=== PATIENT | male | born 1995 | race Caucasian/White ===

== ENCOUNTER 2016-12-04 08:57 | Inpatient (IN) | payer OTHER ==
[~2016-12-04] VITALS: Ht 169.5 cm; Wt 93.3 kg
[~2016-12-04 08:57] MED LIST: BP MEDS; INSULIN; [UNRECOGNIZED DRUG - REMARK]
[2016-12-04] MEDS ORDERED: ACETAMINOPHEN 325 MG TAB PO ONE (10:30)
--- NOTE | 2016-12-04 10:40 | RADRPT ---
PROCEDURE: Chest x-ray CLINICAL INDICATION: Chest pain. TECHNIQUE: One-view frontal. COMPARISON: None available FINDINGS: The cardiac silhouette is normal. No infiltrates are noted. No hilar abnormalities are identified. No pneumothorax or pleural effusions are visualized. IMPRESSION: 1. No active cardiopulmonary changes. RPTAT: HH .Otto Mata MD, MD Date Time Electronically viewed and signed by .Otto Mata MD, on 12/04/2016 10:40 .G/
[2016-12-04] MEDS ORDERED: ALBU18HF INHALATION (11:13)
[2016-12-04] MEDS ORDERED: IBUP-1542 PO (11:13)
[2016-12-04] MEDS ORDERED: SOD CHLORIDE 0.9% 1,000 ML IV STA ×2 (11:46→13:51)
[2016-12-04] MEDS ORDERED: ONDANSETRON 4 MG INJ IV STA (11:46)
[2016-12-04] MEDS ORDERED: INSULIN REGULAR, HUMAN 100 UNIT/1 ML 3ML VIAL SC ONE (12:30)
[2016-12-04 13:05] LABS: ADD UMIC YES; URINE BILIRUBIN (Dip) NEGATIVE (NEGATIVE); URINE BLOOD (Dip) 1+ (NEGATIVE); URINE COLOR LT. YELLOW (YELLOW); URINE KETONES (Dip) 3+ (NEGATIVE); URINE LEUKOCYTE ESTERASE (Dip) NEGATIVE (NEGATIVE); URINE NITRITE (Dip) NEGATIVE (NEGATIVE); URINE TOTAL PROTEIN (Dip) 1+ (NEGATIVE); URINE UROBILINOGEN (Dip) 0.2 E.U./dL (0.1-1.0)
[2016-12-04 13:07] LABS: EOSINOPHILS % 0.1 % (0.0-7.0); HEMATOCRIT 43.5 % (42.0-52.0); LYMPHOCYTES # 2.4 10^3/ul (0.8-2.9); LYMPHOCYTES % 7.1 % (18.0-55.0); MEAN CORPUSCULAR HEMOGLOBIN 30.4 pg (29.0-33.0); MEAN CORPUSCULAR HGB CONC 35.1 g/dl (32.0-37.0); MEAN CORPUSCULAR VOLUME 86.4 fl (72.0-104.0); MEAN PLATELET VOLUME 12.6 fl (7.4-10.4); MONOCYTE # 2.6 10^3/ul (0.3-0.9); MONOCYTES % 7.9 % (0.0-13.0); NEUTROPHIL # 28.5 10^3/ul (1.6-7.5); NEUTROPHILS % 84.9 % (30.0-74.0); RED BLOOD COUNT 5.03 10^6/ul (4.70-6.10); RED CELL DISTRIBUTION WIDTH 12.8 % (11.5-14.5); UNCORRECTED WBC 33.6 10^3/ul (4.8-10.8)
[2016-12-04 13:10] LABS: CONDITION 1; LH ANALYZER COMMENTS 1; PLATELET COUNT 317 10^3/UL (140-440); SUSPECT 1; WHITE BLOOD COUNT 32.8 10^3/ul (4.8-10.8)
[2016-12-04 13:11] LABS: HEMOGLOBIN 15.3 g/dl (14.0-18.0)
[2016-12-04 13:30] LABS: URINE RBCS 0-2 /HPF (0)
[2016-12-04 13:31] LABS: BACTERIA,URINE OCCASIONAL
[2016-12-04 13:36] LABS: ALBUMIN/GLOBULIN RATIO 0.73; POTASSIUM 5.2 mmol/L (3.5-5.1)
[2016-12-04 13:39] LABS: ALBUMIN 3.9 g/dl (3.3-4.9); BILIRUBIN,INDIRECT 0.2 mg/dl (0-1.1); BILIRUBIN,TOTAL 0.2 mg/dl (0.2-1.3); CALCIUM 9.5 mg/dl (8.4-10.2); CREATININE 0.69 mg/dl (0.61-1.24); TOTAL PROTEIN 9.2 g/dl (6.1-8.1)
[2016-12-04] MEDS ORDERED: SODIUM CHLORIDE 0.9% 1L BAG IV* STA (13:41)
[2016-12-04] MEDS ORDERED: INSULIN REGULAR, HUMAN 100 UNIT in SOD CHLORIDE 0.9% 99 ML IV STA ×2 (13:51)
[2016-12-04] MEDS ORDERED: DEXTROSE 50% 50 ML SYRINGE IV PRN ×4 (14:00→14:30)
[2016-12-04 14:08] LABS: INR 0.96; PROTIME 12.8 Sec (12.2-14.2)
[2016-12-04 14:09] LABS: PARTIAL THROMBOPLASTIN TIME 25.8 Sec (25.0-35.0)
[2016-12-04] MEDS: ACCUCHECK XX SCH ×17 (14:21→23:30)
[2016-12-04] MEDS ORDERED: SOD CHLORIDE 0.9% 1,000 ML IV SCH (14:25)
--- NOTE | 2016-12-04 14:26 | ERA ---
ER Documentation Chief Complaint Date/Time DATE: 12/04/16 TIME: 13:21 Chief Complaint CHEST PAIN AND SOB FOR 3 DAYS GETTING WORSE TODAY. HPI 21-year-old male with history of hypertension and type 1 diabetes mellitus, insulin-dependent ambulatory to the ED complaining of generalized malaise and body aches for 3 days. Symptoms began with sharp, nonradiating, lower and generalized chest pain which is waxed and waned. Mild shortness of breath and nausea but no vomiting or diaphoresis. Denies abdominal pain or back pain. No URI symptoms, cough, sore throat or rhinorrhea. Denies dysuria, polyuria, hematuria or flank pain. Generalized weakness but no headache, visual changes, neck or back pain. No skin rash. No relieving or exacerbating factors. No fevers or chills. ROS All systems reviewed and are negative except as per history of present illness. Medications Home Meds Reported Medications Lisinopril* (Lisinopril*) 30 Mg Tablet, 30 MG PO DAILY, #30 TAB 12/04/16 Insulin Aspart* (Novolog Insulin Pen*) 100 Unit/Ml Soln, 0 SC .SLIDING SCALE AC , EA BEFORE MEALS THREE TIMES DAILY 12/04/16 Discontinued Reported Medications [Doesnt Remeber Name] No Conflict Check 05/13/12 [Insulin] No Conflict Check 05/13/12 [Bp Meds] No Conflict Check 05/13/12 [None] No Conflict Check 05/03/12 Discontinued Scripts Albuterol Sulfate* (Ventolin HFA*) 18 Gm Hfa.aer.ad, 2 PUFF INHALATION Q4H, #1 INHALER Prov:ONDINA SOTO MD 12/04/16 Ibuprofen* (Motrin*) 600 Mg Tab, 600 MG PO Q6, #18 TAB Prov:ONDINA SOTO MD 12/04/16 Allergies Allergies: Coded Allergies: No Known Allergies (Verified Allergy, Unknown, 12/04/16) PMhx/Soc Reviewed in chart. As per HPI. Medical and Surgical Hx: pt denies Surgical Hx History of Surgery: No Anesthesia Reaction: No Hx Neurological Disorder: Yes Hx Respiratory Disorders: No Hx Cardiac Disorders: Yes (HTN) Hx Psychiatric Problems: No Hx Miscellaneous Medical Probl: Yes (DM) Hx Alcohol Use: No Hx Substance Use: No Hx Tobacco Use: No Smoking Status: Never smoker FmHx Diabetes and hypertension but no coronary artery disease, stroke or cancer Physical Exam Vitals Vital Signs Date Time Temp Pulse Resp B/P Pulse Ox O2 Delivery O2 Flow Rate FiO2 12/04/16 16:15 114 18 155/79 99 Room Air 12/04/16 15:20 114 160/65 12/04/16 11:48 100.0 120 16 147/78 97 Room Air 12/04/16 08:59 100.2 120 21 177/74 98 Physical Exam Const: Alert, ill-appearing in mild distress. Head: Atraumatic Eyes: Normal Conjunctiva ENT: Normal External Ears, Nose and Mouth. Neck: Full range of motion. No meningismus. Resp: Clear to auscultation bilaterally Cardio: Tachycardic. Regular rate and rhythm, no murmurs Abd: Soft, non tender, non distended. Normal bowel sounds. Obese Skin: No petechiae or rashes Back: No midline or flank tenderness Ext: No cyanosis, or edema Neur: Awake and alert. No focal deficit observed. Psych: Normal Mood and Affect Result Diagram: 12/04/16 1200 12/04/16 1445 Results 24 hrs Laboratory Tests Test 12/04/16 12:00 12/04/16 12:01 12/04/16 12:40 12/04/16 13:47 Alanine Aminotransferase (ALT/SGPT) 37IU/L Albumin 3.9g/dl Albumin/Globulin Ratio 0.73 Alkaline Phosphatase 124IU/L Anion Gap 36 Aspartate Amino Transf (AST/SGOT) 14IU/L Basophils # 0.010^3/ul Basophils % 0.0% Blood Morphology Comment Blood Urea Nitrogen 8mg/dl Calcium Level 9.5mg/dl Carbon Dioxide Level 6mmol/L Chloride Level 99mmol/L Creatinine 0.69mg/dl Direct Bilirubin 0.00mg/dl Eosinophils # 0.010^3/ul Eosinophils % 0.1% Globulin 5.30g/dl Glucose Level 391mg/dl Hematocrit 43.5% Hemoglobin 15.3g/dl Indirect Bilirubin 0.2mg/dl Lipase 116U/L Lymphocytes # 2.410^3/ul Lymphocytes % 7.1% Mean Corpuscular Hemoglobin 30.4pg Mean Corpuscular Hemoglobin Concent 35.1g/dl Mean Corpuscular Volume 86.4fl Mean Platelet Volume 12.6fl Monocytes # 2.610^3/ul Monocytes % 7.9% Neutrophils # 28.510^3/ul Neutrophils % 84.9% Nucleated Red Blood Cells # 0.010^3/ul Nucleated Red Blood Cells % 0.0/100WBC Platelet Count 21178^3/UL Potassium Level 5.2mmol/L Red Blood Count 5.0310^6/ul Red Cell Distribution Width 12.8% Sodium Level 136mmol/L Total Bilirubin 0.2mg/dl Total Protein 9.2g/dl White Blood Count 32.810^3/ul Bedside Glucose 422mg/dL Urine Amphetamines Screen NEGATIVE Urine Bacteria OCCASIONAL Urine Barbiturates NEGATIVE Urine Benzodiazepines Screen NEGATIVE Urine Bilirubin NEGATIVE Urine Cannabinoids NEGATIVE Urine Clarity CLEAR Urine Coarse Granular Casts OCCASIONAL Urine Cocaine Screen NEGATIVE Urine Color LT. YELLOW Urine Fine Granular Casts OCCASIONAL Urine Glucose 0.5%% Urine Granular Casts OCCASIONAL Urine Hemoglobin 1+ Urine Ketones 3+ Urine Leukocyte Esterase NEGATIVE Urine Microscopic RBC 0-2/HPF Urine Microscopic WBC 5-10/HPF Urine Nitrite NEGATIVE Urine Opiates Screen NEGATIVE Urine Specific [place] >=1.030 Urine Total Protein 1+ Urine Urobilinogen 0.2 E.U./dL Urine Yeast OCCASIONAL Urine pH 5.5 Aldair Test N/A Arterial Blood Date Drawn 12/04/2016 2:35:20 PM Arterial Blood Gas Puncture Site VENOUS LINE Blood Gas Critical Value Read Back DR. KHALIL Blood Gas Modality ROOM AIR Blood Gas Notified Time 12/04/2016 2:42:00 PM Blood Gas Notified Whom BRITTANI Blood Gas Specimen Source Blood venous Blood Gas Temperature 37.0C Carboxyhemoglobin 0.3% FiO2 21.0% Venous Blood Base Excess -20.7mmol/L Venous Blood HCO3 6.7mmol/L Venous Blood Methemoglobin 0.3% Venous Blood Oxygen Saturation 65.8mmHG Venous Blood Oxyhemoglobin 65.4% Venous Blood Total Hemoglobin 11.9g/dl Venous Blood pCO2 (Temp Corrected) 20.8mmHG Venous Blood pH 7.126 Venous Blood pO2 (Temp Corrected) 38.2mmHG Test 12/04/16 13:50 12/04/16 14:20 12/04/16 14:45 12/04/16 15:23 Activated Partial Thromboplast Time 25.8Sec Hemoglobin A1c 12.7% INR International Normalized Ratio 0.96 Lactic Acid Level 1.3mmol/L Magnesium Level 1.9mg/dl Phosphorus Level 4.4mg/dl Prothrombin Time 12.8Sec Prothrombin Time Ratio 1.0 Troponin I < 0.012ng/ml Bedside Glucose 329mg/dL 286mg/dL Anion Gap 22 Blood Urea Nitrogen 6mg/dl Calcium Level 6.1mg/dl Carbon Dioxide Level 6mmol/L Chloride Level 114mmol/L Creatinine 0.42mg/dl Glucose Level 239mg/dl Potassium Level 3.8mmol/L Sodium Level 138mmol/L Test 12/04/16 16:20 Bedside Glucose 267mg/dL Current Medications Medications (Trade) Dose Ordered Sig/Cj Route PRN Reason Start Time Stop Time Status Last Admin Dose Admin Acetaminophen 650 mg 650 mg ONCE ONCE PO 12/04/16 10:30 12/04/16 10:31 DC 12/04/16 10:27 Sodium Chloride (NS) 1,000 ml @ 1,000 mls/hr Q1H STAT IV 12/04/16 11:46 12/04/16 12:45 DC 12/04/16 12:14 Ondansetron HCl (Zofran Inj) 4 mg ONCE STAT IV 12/04/16 11:46 12/04/16 11:47 DC 12/04/16 12:14 Insulin Human Regular (Humulin R) 8 unit ONCE ONCE SC 12/04/16 12:30 12/04/16 12:31 DC 12/04/16 12:27 Sodium Chloride 3100 ml 3,100 ml BOLUS OVER 2 HOURS STAT IV* 12/04/16 13:41 12/04/16 13:43 DC 12/04/16 13:52 Sodium Chloride (NS) 1,000 ml @ 1,000 mls/hr Q1H STAT IV 12/04/16 13:51 12/04/16 14:50 DC 12/04/16 14:23 Dextrose (D50w Syringe) 50 ml Q15M PRN IV For BS 50 or less 12/04/16 14:00 Dextrose 25 ml 25 ml Q15M PRN IV BS between 50-70 12/04/16 14:00 Potassium Chloride 20 meq/ Sodium Chloride 1,010 ml @ 500 mls/hr Q2H2M IV 12/04/16 15:51 12/04/16 17:50 12/04/16 16:11 Insulin Human Regular/Sodium Chloride (Humulin R/NS) 100 ml @ 0 mls/hr DKA PROTOCOL STAT IV 12/04/16 13:51 12/04/16 13:55 DC 12/04/16 14:38 Diagnostic Test (Pha) (Accucheck) 1 ea Q1H XX 12/04/16 14:00 12/04/16 16:17 Miscellaneous Information (* Miscellaneous Pharmacy Order) HYPOGLYCEMIA TREATMENT HYPOGLYCEM PROTOCOL PRN XX Hypoglycemia (BS < 70) 12/04/16 14:00 Dextrose (D50w Syringe) 50 ml Q15M PRN IV For BS 50 or less 12/04/16 14:30 Dextrose 25 ml 25 ml Q15M PRN IV BS between 50-70 12/04/16 14:30 Sodium Chloride 1,000 ml @ 1,000 mls/hr Q1H IV 12/04/16 14:25 12/04/16 15:24 DC 12/04/16 14:40 Insulin Human Regular/Sodium Chloride (Humulin R/NS) 100 ml @ 10 mls/hr DKA PROTOCOL IV 12/04/16 14:30 12/04/16 14:30 Diagnostic Test (Pha) (Accucheck) 1 ea Q1H XX 12/04/16 14:30 12/04/16 16:36 Miscellaneous Information HYPOGLYCEMIA TREATMENT HYPOGLYCEM PROTOCOL PRN XX Hypoglycemia (BS < 70) 12/04/16 14:30 Sodium Chloride 1,000 ml @ 150 mls/hr Q6H40M IV 12/04/16 14:25 12/04/16 15:34 Dextrose/Sodium Chloride (D5-1/2ns) 1,000 ml @ 150 mls/hr Q6H40M IV 12/04/16 14:25 12/04/16 14:39 Famotidine (Pepcid Iv) 20 mg BID IV 12/04/16 21:00 Ondansetron HCl (Zofran Inj) 4 mg Q6H PRN IV NAUSEA AND/OR VOMITING 12/04/16 14:30 Docusate Sodium 200 mg 200 mg BID PO 12/04/16 21:00 Piperacillin Sod/ Tazobactam Sod (Zosyn 3.375gm/ 100 ml (Pmx)) 100 ml @ 200 mls/hr ONCE ONCE IVPB 12/04/16 15:00 12/04/16 15:29 DC 12/04/16 15:08 Losartan Potassium 25 mg 25 mg DAILY PO 12/04/16 15:00 12/04/16 15:41 Ceftriaxone Sodium 50 ml @ 100 mls/hr Q24H IVPB 12/04/16 15:00 12/04/16 15:35 Fluconazole (Diflucan 200 Mg/ NS (Pmx)) 100 ml @ 100 mls/hr Q24H IVPB 12/04/16 16:00 12/04/16 16:11 Procedures/MDM DOCUMENTS REVIEWED: ED nurse, prior ED, prior records MEDICAL DECISION MAKIN-year-old male with history of hypertension and type 1 diabetes mellitus, insulin-dependent ambulatory to the ED complaining of generalized malaise and body aches for 3 days. Chest pain of uncertain etiology. No ischemic EKG changes or elevated troponin. No radiographic evidence of pneumonia or pneumothorax. Patient with multiple criteria for systemic inflammatory response syndrome including tachycardia, tachypnea and leukocytosis. No infectious source identified. Lactate is normal. Severe hyperglycemia and anion gap metabolic acidosis consistent with diabetic ketoacidosis. IV hydration and insulin drip are initiated. Patient be admitted to the intensive care unit for further evaluation and management. Counseled patient regarding diagnosis, diagnostic results and plan for admission. CALLS/CONSULTS: Time 13:50, Dr. Palacio, Recommends admission to the ICU. PATIENT CARE TRANSITIONED: Time: 14:00, Dr. Palacio. Critical Care Time: 35 minutes Treatments/Evaluations: Due to the high probability of sudden, clinically significant cardiovascular, hemodynamic and endocrinologic deterioration, this patient with systemic inflammatory response syndrome, chest pain, severe hyperglycemia and diabetic ketoacidosis required frequent and multiple re- evaluations of vital signs and response to therapy including insulin drip. Additional critical care time was spent in interpretation of relevant clinical data, review of previous medical records and discussion with the admitting physician. Total critical care time not including other separately reportable procedures is 35 minutes. Departure Diagnosis: Primary Impression: Diabetic ketoacidosis associated with type 1 diabetes mellitus Qualified Code: E10.10 - Diabetic ketoacidosis without coma associated with type 1 diabetes mellitus Additional Impressions: Hyperglycemia Systemic inflammatory response syndrome Leukocytosis Qualified Code: D72.829 - Leukocytosis, unspecified type Condition: SANDRA Sanabria MD Dec 04, 2016 14:26
[2016-12-04 14:29] LABS: PHOSPHORUS 4.4 mg/dl (2.5-4.9)
[2016-12-04 14:30] LABS: MAGNESIUM 1.9 mg/dl (1.7-2.5)
[2016-12-04] MEDS ORDERED: ONDANSETRON 4 MG INJ IV PRN (14:30)
[2016-12-04] MEDS: INSULIN REGULAR, HUMAN 100 UNIT in SOD CHLORIDE 0.9% 99 ML IV SCH ×6 (14:30→16:35)
[2016-12-04] MEDS: DEXTROSE 5%-0.45% NACL 1,000 ML IV SCH ×2 (14:39→19:13)
[2016-12-04 14:42] LABS: MODE ROOM AIR; MetHgb Venous 0.3 %; Sample Type Blood venous; Venous COHb 0.3 %; Venous Fraction OxyHgb 65.4 %; Venous Total Hemglobin 11.9 g/dl
--- NOTE | 2016-12-04 14:44 | HP ---
Date/Time of Note Date/Time of Note DATE: 12/04/16 TIME: 14:39 Assessment/Plan VTE Prophylaxis VTE Prophylaxis Intervention: SCD's Assessment/Plan Assessment/Plan 21 yo M with DKA UTI (Yeast + bacterial) Sepsis 2/2 #2 HTN: uncontrolled PLAN: ICU admit for DKA via protocol / NPO / Insulin drip / Aggressive IVF hydration Empiric antifungal and abx Blood and urine cultures Serial labs Commence ARB therapy for HTN and proteinuria Prophylaxis with SCDs and Pepcid pain control/ antiemetics/ antipyretics/ supportive care Further evaluation and treatment will be based on clinical course Full discussion with care team done. All questions Answered Please also see orders. Total time spent on this evaluation >35mins HPI/ROS Admit Date/Time Admit Date/Time 12/04/16 Hx of Present Illness PRESENTING COMPLAINT: body aches HISTORY OF PRESENTING COMPLAINT: 21-year-old male with history of hypertension and type 1 diabetes mellitus, insulin-dependent ambulatory to the ED complaining of generalized malaise and body aches for 3 days. Symptoms began with sharp, nonradiating, lower and generalized chest pain which is waxed and waned. Mild shortness of breath and nausea but no vomiting or diaphoresis. Denies abdominal pain or back pain. No URI symptoms, cough, sore throat or rhinorrhea. Denies dysuria, polyuria, hematuria or flank pain. Generalized weakness but no headache, visual changes, neck or back pain. No skin rash. No relieving or exacerbating factors. No fevers or chills. ROS 12 point review if systems was done and pertinent findings are as noted. PMH/Family/Social Past Medical History Medical History: diabetes, hypertension Past Surgical History Past Surgical Hx: no surgical history Family History Significant Family History: diabetes Social History Smoking Status: Never smoker Exam/Review of Systems Vital Signs Vitals VS - Last 72 Hours, by Label Date Time Temp Pulse Resp B/P Pulse Ox O2 Delivery O2 Flow Rate FiO2 12/04/16 11:48 100.0 120 16 147/78 97 Room Air 12/04/16 08:59 100.2 120 21 177/74 98 Vital Signs Date Time Temp Pulse Resp B/P Pulse Ox O2 Delivery O2 Flow Rate FiO2 12/04/16 11:48 100.0 120 16 147/78 97 Room Air Exam Constitutional: alert, oriented Psych: nl mood/affect Head: atraumatic, normocephalic Eyes: PERRL ENMT: No mucosa pink and moist (dry) Neck: supple Respiratory: clear to auscultation, normal air movement Cardiovascular: nl pulses, No regular rate and rhythm (tachycardia) Gastrointestinal: bowel sounds, non-tender, soft Extremities: No edema Neurological: nl mental status Skin: No rash or lesions Labs Result Diagram: 12/04/16 1200 12/04/16 1200 Medications Medications Current Medications Dextrose (D50w Syringe) 50 ml Q15M PRN IV For BS 50 or less; Start 12/04/16 at 14:00 Dextrose 25 ml 25 ml Q15M PRN IV BS between 50-70; Start 12/04/16 at 14:00 Potassium Chloride/Sodium Chloride (KCl/NS) 1,010 ml @ 500 mls/hr Q2H2M IV ; Start 12/04/16 at 15:51; Stop 12/04/16 at 17:50 Diagnostic Test (Pha) (Accucheck) 1 ea Q1H XX Last administered on 12/04/16t 14 :21; Admin Dose 1 EA; Start 12/04/16 at 14:00 Dextrose (D50w Syringe) 50 ml Q15M PRN IV For BS 50 or less; Start 12/04/16 at 14:30 Dextrose 25 ml 25 ml Q15M PRN IV BS between 50-70; Start 12/04/16 at 14:30 Sodium Chloride (NS) 1,000 ml @ 1,000 mls/hr Q1H IV ; Start 12/04/16 at 14:25; Stop 12/04/16 at 15:24 Diagnostic Test (Pha) 1 ea 1 ea Q1H XX ; Start 12/04/16 at 14:30 Sodium Chloride 1,000 ml @ 125 mls/hr Q8H IV ; Start 12/04/16 at 14:25 Dextrose/Sodium Chloride (D5-1/2ns) 1,000 ml @ 125 mls/hr Q8H IV ; Start at 14:25 Famotidine (Pepcid Iv) 20 mg BID IV ; Start 12/04/16 at 21:00 Ondansetron HCl (Zofran Inj) 4 mg Q6H PRN IV NAUSEA AND/OR VOMITING; Start at 14:30 Docusate Sodium 200 mg 200 mg BID PO ; Start 12/04/16 at 21:00 Piperacillin Sod/ Tazobactam Sod (Zosyn 3.375gm/ 100 ml (Pmx)) 100 ml @ 200 mls /hr ONCE ONCE IVPB ; Start 12/04/16 at 15:00; Stop 12/04/16 at 15:29 Procedures Procedures PROCEDURE: Chest x-ray CLINICAL INDICATION: Chest pain. TECHNIQUE: One-view frontal. COMPARISON: None available FINDINGS: The cardiac silhouette is normal. No infiltrates are noted. No hilar abnormalities are identified. No pneumothorax or pleural effusions are visualized. IMPRESSION: 1. No active cardiopulmonary changes. RPTAT: HH .Otto Mata MD, Date Time Electronically viewed and signed by .Otto Mata MD, MD on 12/04/2016 10: 40 .G/ CC: ONDINA SOTO MD I reviewed EKG Rate: tachycardia Rhythm: sinus Note: No ST elevation or depressions noted concerning for acute ischemic event. SALLY WILKINS Dec 04, 2016 14:44
[2016-12-04] MEDS ORDERED: PIPER-TAZO 3.375 GM IV (PMX) 100 ML IVPB ONE (15:00)
[2016-12-04] MEDS: SOD CHLORIDE 0.9% 1,000 ML IV SCH ×2 (15:34→23:06)
[2016-12-04] MEDS: CEFTRIAXONE 1 GM/50 ML (PMX) 50 ML IVPB SCH (15:35)
[2016-12-04] MEDS ORDERED: NOVO3I SC (15:40)
[2016-12-04 15:41] LABS: BARBITURATES NEGATIVE (NEGATIVE); BENZODIAZEPINES NEGATIVE (NEGATIVE); CANNABINOIDS NEGATIVE (NEGATIVE); COCAINE NEGATIVE (NEGATIVE); OPIATES NEGATIVE (NEGATIVE)
[2016-12-04] MEDS ORDERED: LISI30TA47 PO (15:41)
[2016-12-04] MEDS: LOSARTAN 25 MG TAB PO SCH (15:41)
[2016-12-04] MEDS ORDERED: POTASSIUM CHLORIDE 20 MEQ in SOD CHLORIDE 0.9% 1,000 ML IV SCH (15:51)
[2016-12-04 15:58] LABS: CALCIUM 6.1 mg/dl (8.4-10.2); CREATININE 0.42 mg/dl (0.61-1.24); POTASSIUM 3.8 mmol/L (3.5-5.1)
[2016-12-04] MEDS: FLUCONAZOLE 200 MG/NS (PMX) 100 ML IVPB SCH (16:11)
[2016-12-04 20:55] LABS: CHLORIDE 106 mmol/L (97-110)
[2016-12-04 20:56] LABS: POTASSIUM 4.9 mmol/L (3.5-5.1); SODIUM 135 mmol/L (135-144)
[2016-12-04 20:58] LABS: CREATININE 0.52 mg/dl (0.61-1.24)
[2016-12-04 20:59] LABS: BLOOD UREA NITROGEN 4 mg/dl (7-20); CALCIUM 8.9 mg/dl (8.4-10.2); GLUCOSE 204 mg/dl (70-220)
[2016-12-04 21:11] LABS: ANION GAP 29 (8-16); CARBON DIOXIDE < 5 mmol/L (21-31)
[2016-12-04 21:17] VITALS: TEMP 100
[2016-12-04 21:30] VITALS: Ht 169.5 cm; Wt 93.3 kg
[2016-12-04 21:45] VITALS: PULSE 115
[2016-12-04 22:00] VITALS: BP 156/80; PULSE 111; RESP 24
[2016-12-04 22:30] VITALS: BP 151/78; PULSE 107; RESP 22
[2016-12-04] MEDS ORDERED: ACETAMINOPHEN 325 MG TAB PO PRN (22:30)
[2016-12-04] MEDS: DOCUSATE SODIUM 100 MG CAP PO SCH (22:48)
[2016-12-04] MEDS: FAMOTIDINE 20 MG INJ IV SCH (22:48)
[2016-12-04 23:00] VITALS: BP 165/81; PULSE 114; RESP 26
[2016-12-04 23:24] LABS: POTASSIUM 4.7 mmol/L (3.5-5.1)
[2016-12-04 23:26] LABS: CREATININE 0.51 mg/dl (0.61-1.24)
[2016-12-04 23:27] LABS: CALCIUM 9.1 mg/dl (8.4-10.2)
[2016-12-05] VITALS (23 sets, daily range): BP systolic 118–155; BP diastolic 64–91; PULSE 101–119; RESP 16–25
[2016-12-05] MEDS: ACCUCHECK XX SCH ×24 (01:11→23:30)
[2016-12-05] MEDS: INSULIN REGULAR, HUMAN 100 UNIT in SOD CHLORIDE 0.9% 99 ML IV SCH ×8 (01:51→21:49)
[2016-12-05] MEDS: DEXTROSE 5%-0.9% NACL 1,000 ML IV SCH ×2 (02:00→08:25)
[2016-12-05 04:12] LABS: MAGNESIUM 1.5 mg/dl (1.7-2.5); PHOSPHORUS 2.4 mg/dl (2.5-4.9)
[2016-12-05 05:23] LABS: POTASSIUM 4.3 mmol/L (3.5-5.1)
[2016-12-05 05:25] LABS: CREATININE 0.48 mg/dl (0.61-1.24)
[2016-12-05 05:26] LABS: CALCIUM 9.4 mg/dl (8.4-10.2)
[2016-12-05] MEDS: SOD CHLORIDE 0.9% 1,000 ML IV SCH (08:00)
[2016-12-05] MEDS: DEXTROSE 5%-0.45% NACL 1,000 ML IV SCH (08:00)
[2016-12-05] MEDS: DOCUSATE SODIUM 100 MG CAP PO SCH ×2 (08:26→21:26)
[2016-12-05] MEDS: FAMOTIDINE 20 MG INJ IV SCH ×2 (08:27→21:25)
[2016-12-05] MEDS: LOSARTAN 25 MG TAB PO SCH (08:27)
[2016-12-05] MEDS ORDERED: SOD CHLORIDE 0.9% 1,000 ML IV SCH (09:35)
[2016-12-05 09:37] LABS: HEMATOCRIT 41.3 % (42.0-52.0); HEMOGLOBIN 14.3 g/dl (14.0-18.0); MEAN CORPUSCULAR HEMOGLOBIN 30.1 pg (29.0-33.0); MEAN CORPUSCULAR HGB CONC 34.5 g/dl (32.0-37.0); MEAN CORPUSCULAR VOLUME 87.2 fl (72.0-104.0); MEAN PLATELET VOLUME 9.6 fl (7.4-10.4); PLATELET COUNT 303 10^3/UL (140-440); RED BLOOD COUNT 4.74 10^6/ul (4.70-6.10); RED CELL DISTRIBUTION WIDTH 13.6 % (11.5-14.5); UNCORRECTED WBC 27.1 10^3/ul (4.8-10.8); WHITE BLOOD COUNT 27.1 10^3/ul (4.8-10.8)
[2016-12-05 09:43] LABS: CONDITION 1; LH ANALYZER COMMENTS 1; SUSPECT 1
--- NOTE | 2016-12-05 09:58 | PN ---
Date/Time of Note Date/Time of Note DATE: 12/05/16 TIME: 09:24 Assessment/Plan VTE Prophylaxis VTE Prophylaxis Intervention: SCD's Lines/Catheters IV Catheter Type (from Nrsg): Peripheral IV Assessment/Plan Assessment/Plan 21 yo M with DKA 2/2 Non compliance Type 1 Diabetic UTI (Yeast + bacterial) Positve B/c likely contaminant Sepsis 2/2 #2 HTN: improved control PLAN: Continue DKA protocol Continue aggressive fluid hydration Continue empiric abx and antifungal F/u final culture reports Continue ARB therapy Diabetic education and endocrinology consults Continue ICU supportive care CRITICAL CARE TIME: >35 mins Subjective 24 Hr Interval Summary Free Text/Dictation Patient seen and examined. no new complaints still lethargic Exam/Review of Systems Vital Signs Vitals Vital Signs Date Time Temp Pulse Resp B/P Pulse Ox O2 Delivery O2 Flow Rate FiO2 12/05/16 08:00 109 12/05/16 07:00 21 132/64 98 12/05/16 04:00 97.6 Room Air Intake and Output 12/04/16 12/04/16 12/05/16 15:00 23:00 07:00 Intake Total 300 ml 1370 ml Output Total 2050 ml 3050 ml Balance -1750 ml -1680 ml Exam Constitutional: alert, oriented Head: normocephalic Eyes: PERRL ENMT: No mucosa pink and moist (dry) Neck: non-tender, supple Respiratory: clear to auscultation Cardiovascular: nl pulses, regular rate and rhythm Gastrointestinal: non-tender, soft Extremities: No edema Neurological: lethargic Results Result Diagram: 12/04/16 1200 12/05/16 0334 Results 24 hrs Laboratory Tests Test 12/04/16 12:00 12/04/16 12:01 12/04/16 12:40 12/04/16 13:47 Alanine Aminotransferase (ALT/SGPT) 37 Albumin 3.9 Albumin/Globulin Ratio 0.73 Alkaline Phosphatase 124 H Anion Gap 36 H Aspartate Amino Transf (AST/SGOT) 14 L Basophils # 0.0 Basophils % 0.0 Blood Morphology Comment Blood Urea Nitrogen 8 Calcium Level 9.5 Carbon Dioxide Level 6 *L Chloride Level 99 Creatinine 0.69 Direct Bilirubin 0.00 Eosinophils # 0.0 Eosinophils % 0.1 Globulin 5.30 H Glucose Level 391 H Hematocrit 43.5 Hemoglobin 15.3 Indirect Bilirubin 0.2 Lipase 116 Lymphocytes # 2.4 Lymphocytes % 7.1 L Mean Corpuscular Hemoglobin 30.4 Mean Corpuscular Hemoglobin Concent 35.1 Mean Corpuscular Volume 86.4 Mean Platelet Volume 12.6 H Monocytes # 2.6 H Monocytes % 7.9 Neutrophils # 28.5 H Neutrophils % 84.9 H Nucleated Red Blood Cells # 0.0 Nucleated Red Blood Cells % 0.0 Platelet Count 317 Potassium Level 5.2 H Red Blood Count 5.03 Red Cell Distribution Width 12.8 Sodium Level 136 Total Bilirubin 0.2 Total Protein 9.2 H White Blood Count 32.8 H Bedside Glucose 422 *H Urine Amphetamines Screen NEGATIVE Urine Bacteria OCCASIONAL Urine Barbiturates NEGATIVE Urine Benzodiazepines Screen NEGATIVE Urine Bilirubin NEGATIVE Urine Cannabinoids NEGATIVE Urine Clarity CLEAR Urine Coarse Granular Casts OCCASIONAL Urine Cocaine Screen NEGATIVE Urine Color LT. YELLOW Urine Fine Granular Casts OCCASIONAL Urine Glucose 0.5% H Urine Granular Casts OCCASIONAL Urine Hemoglobin 1+ H Urine Ketones 3+ H Urine Leukocyte Esterase NEGATIVE Urine Microscopic RBC 0-2 Urine Microscopic WBC 5-10 Urine Nitrite NEGATIVE Urine Opiates Screen NEGATIVE Urine Specific [place] >=1.030 H Urine Total Protein 1+ H Urine Urobilinogen 0.2 E.U./dL Urine Yeast OCCASIONAL Urine pH 5.5 Aldair Test N/A Arterial Blood Date Drawn 12/04/2016 2:35:20 PM Arterial Blood Gas Puncture Site VENOUS LINE Blood Gas Critical Value Read Back DR. KHALIL Blood Gas Modality ROOM AIR Blood Gas Notified Time 12/04/2016 2:42:00 PM Blood Gas Notified Whom MarciePHYSICIAN VICE PRESIDENT Blood Gas Specimen Source Blood venous Blood Gas Temperature 37.0 Carboxyhemoglobin 0.3 FiO2 21.0 Venous Blood Base Excess -20.7 L Venous Blood HCO3 6.7 L Venous Blood Methemoglobin 0.3 Venous Blood Oxygen Saturation 65.8 Venous Blood Oxyhemoglobin 65.4 Venous Blood Total Hemoglobin 11.9 Venous Blood pCO2 (Temp Corrected) 20.8 L Venous Blood pH 7.126 *L Venous Blood pO2 (Temp Corrected) 38.2 H Test 12/04/16 13:50 12/04/16 14:20 12/04/16 14:45 12/04/16 15:23 Activated Partial Thromboplast Time 25.8 Hemoglobin A1c 12.7 H INR International Normalized Ratio 0.96 Lactic Acid Level 1.3 Magnesium Level 1.9 Phosphorus Level 4.4 Prothrombin Time 12.8 Prothrombin Time Ratio 1.0 Troponin I < 0.012 Bedside Glucose 329 H 286 H Anion Gap 22 #H Blood Urea Nitrogen 6 L Calcium Level 6.1 L Carbon Dioxide Level 6 *L Chloride Level 114 H Creatinine 0.42 L Glucose Level 239 #H Potassium Level 3.8 Sodium Level 138 Test 12/04/16 16:00 12/04/16 16:20 12/04/16 17:11 12/04/16 18:08 Lactic Acid Level 1.9 Bedside Glucose 267 H 259 H 225 H Test 12/04/16 19:01 12/04/16 19:30 12/04/16 20:13 12/04/16 21:10 Bedside Glucose 205 211 180 Anion Gap 29 #H Blood Urea Nitrogen 4 L Calcium Level 8.9 Carbon Dioxide Level < 5 *L Chloride Level 106 Creatinine 0.52 L Glucose Level 204 Lactic Acid Level 1.2 Potassium Level 4.9 Sodium Level 135 Test 12/04/16 21:54 12/04/16 22:25 12/04/16 22:58 12/04/16 23:56 Bedside Glucose 183 183 203 Anion Gap 29 H Blood Urea Nitrogen 3 L Calcium Level 9.1 Carbon Dioxide Level 7 *L Chloride Level 104 Creatinine 0.51 L Glucose Level 205 Potassium Level 4.7 Sodium Level 135 Test 12/05/16 01:07 12/05/16 01:53 12/05/16 03:09 12/05/16 03:34 Bedside Glucose 163 157 197 Anion Gap 26 H Blood Urea Nitrogen 3 L Calcium Level 9.4 Carbon Dioxide Level 7 *L Chloride Level 106 Creatinine 0.48 L Glucose Level 197 Magnesium Level 1.5 L Phosphorus Level 2.4 #L Potassium Level 4.3 Sodium Level 135 Test 12/05/16 04:20 12/05/16 05:18 12/05/16 06:36 12/05/16 08:24 Bedside Glucose 211 190 159 140 Medications Medications Current Medications Dextrose (D50w Syringe) 50 ml Q15M PRN IV For BS 50 or less; Start 12/04/16 at 14:30 Dextrose (D50w Syringe) 25 ml Q15M PRN IV BS between 50-70; Start 12/04/16 at 14:30 Diagnostic Test (Pha) 1 ea 1 ea Q1H XX Last administered on 12/05/16 08:38; Admin Dose 1 EA; Start 12/04/16 at 14:30 Sodium Chloride 1,000 ml @ 150 mls/hr Q6H40M IV Last administered on 23:06; Admin Dose 150 MLS/HR; Start 12/04/16 at 14:25 Dextrose/Sodium Chloride (D5-1/2ns) 1,000 ml @ 150 mls/hr Q6H40M IV Last administered on 12/04/16 19:13; Admin Dose 150 MLS/HR; Start 12/04/16 at 14:25 Famotidine (Pepcid Iv) 20 mg BID IV Last administered on 12/05/16 08:27; Admin Dose 20 MG; Start 12/04/16 at 21:00 Ondansetron HCl (Zofran Inj) 4 mg Q6H PRN IV NAUSEA AND/OR VOMITING; Start at 14:30 Docusate Sodium (Colace) 200 mg BID PO Last administered on 12/05/16 08:26; Admin Dose 200 MG; Start 12/04/16 at 21:00 Losartan Potassium 25 mg 25 mg DAILY PO Last administered on 12/05/16 08:27; Admin Dose 25 MG; Start 12/04/16 at 15:00 Ceftriaxone Sodium 50 ml @ 100 mls/hr Q24H IVPB Last administered on 15:35; Admin Dose 100 MLS/HR; Start 12/04/16 at 15:00 Fluconazole (Diflucan 200 Mg/ NS (Pmx)) 100 ml @ 100 mls/hr Q24H IVPB Last administered on 12/04/16 16:11; Admin Dose 100 MLS/HR; Start 12/04/16 at 16:00 Acetaminophen 650 mg 650 mg Q6H PRN PO PAIN AND OR ELEVATED TEMP Last administered on 12/04/16 22:48; Admin Dose 650 MG; Start 12/04/16 at 22:30 Dextrose/Sodium Chloride (D5-NS) 1,000 ml @ 150 mls/hr Q6H40M IV Last administered on 12/05/16 08:25; Admin Dose 150 MLS/HR; Start 12/05/16 at 02:00 ; Stop 12/08/16 at 01:59 SALLY WILKINS Dec 05, 2016 09:34
[2016-12-05 10:46] LABS: LYMPHOCYTES # 3.5 10^3/ul (0.8-2.9); MONOCYTE # 2.4 10^3/ul (0.3-0.9); NEUTROPHIL # 19.2 10^3/ul (1.6-7.5)
[2016-12-05] MEDS ORDERED: DEXTROSE 5%-0.9% NACL 1,000 ML IV SCH (11:00)
[2016-12-05 11:18] LABS: POTASSIUM 3.6 mmol/L (3.5-5.1)
[2016-12-05 11:20] LABS: CREATININE 0.44 mg/dl (0.61-1.24)
[2016-12-05 11:21] LABS: CALCIUM 9.5 mg/dl (8.4-10.2)
--- NOTE | 2016-12-05 11:24 | CONS ---
Date/Time of Note Date/Time of Note DATE: 12/05/16 TIME: 11:09 Assessment/Plan Assessment/Plan Problems: (1) Diabetic ketoacidosis associated with type 1 diabetes mellitus Status: Acute Comment: Glucose normal but chemistries still indicate pt. far from having resolved DKA. Cont. routine lab checks, cont. insulin drip and supplement dextrose to maintain BG in 150-250 mg/dL range. Replace electrolytes. Lower tonicity of IVF as CO2 normalizes to maintain Cl at normal levels. Qualifiers: Qualified Code: E10.10 - Diabetic ketoacidosis without coma associated with type 1 diabetes mellitus (2) Leukocytosis Status: Acute Comment: Indicators of acute infection as inciting cause of DKA. Defer to primary team to continue to evaluate this. Qualifiers: Qualified Code: D72.829 - Leukocytosis, unspecified type (3) Type 1 diabetes mellitus with hyperglycemia Status: Chronic Comment: Adherence must be improved or pt. will suffer complications. Will order education. Consider taking off carb counting and resuming set doses of insulin as an outpt. to improve adherence. Will order lantus 40 units tonight assuming DKA will resolve within the next 24 hours. Once lantus given and DKA resolved, can wean off insulin drip. Would start mealtime Novolog doses at 50% of lantus dose, in this case, 20 qac once insulin drip is off. Will follow with you. Consultation Date/Type/Reason Admit Date/Time 12/04/16 Date of Consultation: Dec 05, 2016 Type of Consultation: Endocrinology Reason for Consultation DKA Referring Provider: SALLY WILKINS Hx of Present Illness 21 y/o H M w/ 4 1/2 y. h/o T1DM and also HTN was in [facility] until his regular check- up with his endo 7 weeks ago. Pt. admits that since then his adherence rate w/ taking his insulin has gone down and his diet has raged out of control. Pt. reports he only remembers to take his mealtime insulin 1-2 times per day although may eat several more times than that. He reports that it is difficult to calculate his insulin dose based on carb-counting and BG. States that 3 days ago developed mild epigastric pain and thought he ate something bad. Over the next 2 days the pain worsened. 2 nights ago did not sleep b/c of the pain. Yesterday when he awoke decided to go to outside clinic where he was found to be hypertensive and hyperglycemic. Decided to go to [facility]. In ER was in DKA w / glucose ~ 400 mg/dL, CO2 6, and (+) ketonuria. Admitted and started on insulin drip. Constitutional: improved, no complaints Eyes: no complaints ENT: no complaints Respiratory: no complaints Cardiovascular: chest pain Gastrointestinal: pain, No nausea, No vomiting Genitourinary: no complaints Musculoskeletal: no complaints Neurologic: no complaints Psychological: nl mood/affect, no complaints Past Medical History Medical History: diabetes, hypertension Past Surgical History Past Surgical Hx: no surgical history Family History Significant Family History: diabetes (T2 in PGM) Social History b. 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, still lives w/ parents Alcohol Use: none Smoking Status: Never smoker Drug Use: none Exam/Review of Systems Vital Signs Vitals Vital Signs Date Time Temp Pulse Resp B/P Pulse Ox O2 Delivery O2 Flow Rate FiO2 12/05/16 08:00 109 12/05/16 07:00 21 132/64 98 12/05/16 04:00 97.6 Room Air Intake and Output 12/04/16 12/04/16 12/05/16 15:00 23:00 07:00 Intake Total 300 ml 1370 ml Output Total 2050 ml 3050 ml Balance -1750 ml -1680 ml Exam Constitutional: alert, obese, oriented Psych: nl mood/affect, no complaints Eyes: EOMI, PERRL, nl conjunctiva, nl lids, nl sclera ENMT: mucosa pink and moist, nl external ears & nose Neck: non-tender, supple, No bruits, No masses, No thyromegaly Respiratory: clear to auscultation, normal air movement Cardiovascular: nl pulses, regular rate and rhythm, No edema, No murmurs/extra sounds, No rub Gastrointestinal: bowel sounds, nl liver, spleen, non-tender, soft, No mass, No rebound or guarding Musculoskeletal: nl extremities to inspection Extremities: normal pulses, No clubbing, No cyanosis, No edema Neurological: ROUTE AGENT II-XII intact, nl mental status, nl speech, nl strength Additional Comments Bedside Glucose - 72 Hours Test 12/04/16 12:01 12/04/16 14:20 12/04/16 15:23 12/04/16 16:20 Bedside Glucose 422mg/dL (70-220) *H 329mg/dL (70-220) H 286mg/dL (70-220) H 267mg/dL (70-220) H Test 12/04/16 17:11 12/04/16 18:08 12/04/16 19:01 12/04/16 20:13 Bedside Glucose 259mg/dL (70-220) H 225mg/dL (70-220) H 205mg/dL (70-220) 211mg/dL (70-220) Test 12/04/16 21:10 12/04/16 21:54 12/04/16 22:58 12/04/16 23:56 Bedside Glucose 180mg/dL (70-220) 183mg/dL (70-220) 183mg/dL (70-220) 203mg/dL (70-220) Test 12/05/16 01:07 12/05/16 01:53 12/05/16 03:09 12/05/16 04:20 Bedside Glucose 163mg/dL (70-220) 157mg/dL (70-220) 197mg/dL (70-220) 211mg/dL (70-220) Test 12/05/16 05:18 12/05/16 06:36 12/05/16 08:24 12/05/16 09:40 Bedside Glucose 190mg/dL (70-220) 159mg/dL (70-220) 140mg/dL (70-220) 139mg/dL (70-220) Test 12/05/16 11:10 Bedside Glucose 105mg/dL (70-220) Results Result Diagram: 12/05/16 0430 12/05/16 0334 Results 24 hrs Laboratory Tests Test 12/04/16 12:00 12/04/16 12:01 12/04/16 12:40 12/04/16 13:47 Alanine Aminotransferase (ALT/SGPT) 37 Albumin 3.9 Albumin/Globulin Ratio 0.73 Alkaline Phosphatase 124 H Anion Gap 36 H Aspartate Amino Transf (AST/SGOT) 14 L Basophils # 0.0 Basophils % 0.0 Blood Morphology Comment Blood Urea Nitrogen 8 Calcium Level 9.5 Carbon Dioxide Level 6 *L Chloride Level 99 Creatinine 0.69 Direct Bilirubin 0.00 Eosinophils # 0.0 Eosinophils % 0.1 Globulin 5.30 H Glucose Level 391 H Hematocrit 43.5 Hemoglobin 15.3 Indirect Bilirubin 0.2 Lipase 116 Lymphocytes # 2.4 Lymphocytes % 7.1 L Mean Corpuscular Hemoglobin 30.4 Mean Corpuscular Hemoglobin Concent 35.1 Mean Corpuscular Volume 86.4 Mean Platelet Volume 12.6 H Monocytes # 2.6 H Monocytes % 7.9 Neutrophils # 28.5 H Neutrophils % 84.9 H Nucleated Red Blood Cells # 0.0 Nucleated Red Blood Cells % 0.0 Platelet Count 317 Potassium Level 5.2 H Red Blood Count 5.03 Red Cell Distribution Width 12.8 Sodium Level 136 Total Bilirubin 0.2 Total Protein 9.2 H White Blood Count 32.8 H Bedside Glucose 422 *H Urine Amphetamines Screen NEGATIVE Urine Bacteria OCCASIONAL Urine Barbiturates NEGATIVE Urine Benzodiazepines Screen NEGATIVE Urine Bilirubin NEGATIVE Urine Cannabinoids NEGATIVE Urine Clarity CLEAR Urine Coarse Granular Casts OCCASIONAL Urine Cocaine Screen NEGATIVE Urine Color LT. YELLOW Urine Fine Granular Casts OCCASIONAL Urine Glucose 0.5% H Urine Granular Casts OCCASIONAL Urine Hemoglobin 1+ H Urine Ketones 3+ H Urine Leukocyte Esterase NEGATIVE Urine Microscopic RBC 0-2 Urine Microscopic WBC 5-10 Urine Nitrite NEGATIVE Urine Opiates Screen NEGATIVE Urine Specific [place] >=1.030 H Urine Total Protein 1+ H Urine Urobilinogen 0.2 E.U./dL Urine Yeast OCCASIONAL Urine pH 5.5 [place] Test N/A Arterial Blood Date Drawn 12/04/2016 2:35:20 PM Arterial Blood Gas Puncture Site VENOUS LINE Blood Gas Critical Value Read Back DR. KHALIL Blood Gas Modality ROOM AIR Blood Gas Notified Time 12/04/2016 2:42:00 PM Blood Gas Notified Whom [employer] Blood Gas Specimen Source Blood venous Blood Gas Temperature 37.0 Carboxyhemoglobin 0.3 FiO2 21.0 Venous Blood Base Excess -20.7 L Venous Blood HCO3 6.7 L Venous Blood Methemoglobin 0.3 Venous Blood Oxygen Saturation 65.8 Venous Blood Oxyhemoglobin 65.4 Venous Blood Total Hemoglobin 11.9 Venous Blood pCO2 (Temp Corrected) 20.8 L Venous Blood pH 7.126 *L Venous Blood pO2 (Temp Corrected) 38.2 H Test 12/04/16 13:50 12/04/16 14:20 12/04/16 14:45 12/04/16 15:23 Activated Partial Thromboplast Time 25.8 Hemoglobin A1c 12.7 H INR International Normalized Ratio 0.96 Lactic Acid Level 1.3 Magnesium Level 1.9 Phosphorus Level 4.4 Prothrombin Time 12.8 Prothrombin Time Ratio 1.0 Troponin I < 0.012 Bedside Glucose 329 H 286 H Anion Gap 22 #H Blood Urea Nitrogen 6 L Calcium Level 6.1 L Carbon Dioxide Level 6 *L Chloride Level 114 H Creatinine 0.42 L Glucose Level 239 #H Potassium Level 3.8 Sodium Level 138 Test 12/04/16 16:00 12/04/16 16:20 12/04/16 17:11 12/04/16 18:08 Lactic Acid Level 1.9 Bedside Glucose 267 H 259 H 225 H Test 12/04/16 19:01 12/04/16 19:30 12/04/16 20:13 12/04/16 21:10 Bedside Glucose 205 211 180 Anion Gap 29 #H Blood Urea Nitrogen 4 L Calcium Level 8.9 Carbon Dioxide Level < 5 *L Chloride Level 106 Creatinine 0.52 L Glucose Level 204 Lactic Acid Level 1.2 Potassium Level 4.9 Sodium Level 135 Test 12/04/16 21:54 12/04/16 22:25 12/04/16 22:58 12/04/16 23:56 Bedside Glucose 183 183 203 Anion Gap 29 H Blood Urea Nitrogen 3 L Calcium Level 9.1 Carbon Dioxide Level 7 *L Chloride Level 104 Creatinine 0.51 L Glucose Level 205 Potassium Level 4.7 Sodium Level 135 Test 12/05/16 01:07 12/05/16 01:53 12/05/16 03:09 12/05/16 03:34 Bedside Glucose 163 157 197 Anion Gap 26 H Blood Urea Nitrogen 3 L Calcium Level 9.4 Carbon Dioxide Level 7 *L Chloride Level 106 Creatinine 0.48 L Glucose Level 197 Magnesium Level 1.5 L Phosphorus Level 2.4 #L Potassium Level 4.3 Sodium Level 135 Test 12/05/16 04:20 12/05/16 04:30 12/05/16 05:18 12/05/16 06:36 Bedside Glucose 211 190 159 Band Neutrophils % 7.0 H Basophils # Basophils % Differential Comment MANUAL DIFF Eosinophils # Eosinophils % Hematocrit 41.3 L Hemoglobin 14.3 Large Platelets FEW Lymphocytes # 3.5 H Lymphocytes % 13.0 L Mean Corpuscular Hemoglobin 30.1 Mean Corpuscular Hemoglobin Concent 34.5 Mean Corpuscular Volume 87.2 Mean Platelet Volume 9.6 # Monocytes # 2.4 H Monocytes % 9.0 Neutrophils # 19.2 H Neutrophils % 71.0 Nucleated Red Blood Cells # Nucleated Red Blood Cells % Platelet Count 303 Red Blood Count 4.74 Red Cell Distribution Width 13.6 White Blood Count 27.1 H Test 12/05/16 08:24 12/05/16 09:40 Bedside Glucose 140 139 Medications Medications Current Medications Dextrose (D50w Syringe) 50 ml Q15M PRN IV For BS 50 or less; Start 12/04/16 at 14:30 Dextrose (D50w Syringe) 25 ml Q15M PRN IV BS between 50-70; Start 12/04/16 at 14:30 Diagnostic Test (Pha) (Accucheck) 1 ea Q1H XX Last administered on 12/05/16 11 :05; Admin Dose 1 EA; Start 12/04/16 at 14:30 Famotidine (Pepcid Iv) 20 mg BID IV Last administered on 12/05/16 08:27; Admin Dose 20 MG; Start 12/04/16 at 21:00 Ondansetron HCl (Zofran Inj) 4 mg Q6H PRN IV NAUSEA AND/OR VOMITING; Start at 14:30 Docusate Sodium (Colace) 200 mg BID PO Last administered on 12/05/16 08:26; Admin Dose 200 MG; Start 12/04/16 at 21:00 Losartan Potassium 25 mg 25 mg DAILY PO Last administered on 12/05/16 08:27; Admin Dose 25 MG; Start 12/04/16 at 15:00 Ceftriaxone Sodium 50 ml @ 100 mls/hr Q24H IVPB Last administered on 15:35; Admin Dose 100 MLS/HR; Start 12/04/16 at 15:00 Fluconazole (Diflucan 200 Mg/ NS (Pmx)) 100 ml @ 100 mls/hr Q24H IVPB Last administered on 12/04/16 16:11; Admin Dose 100 MLS/HR; Start 12/04/16 at 16:00 Acetaminophen 650 mg 650 mg Q6H PRN PO PAIN AND OR ELEVATED TEMP Last administered on 12/04/16 22:48; Admin Dose 650 MG; Start 12/04/16 at 22:30 Sodium Chloride 1,000 ml @ 150 mls/hr Q6H40M IV Last administered on 09:35; Admin Dose 150 MLS/HR; Start 12/05/16 at 09:35 Dextrose/Sodium Chloride (D5-NS) 1,000 ml @ 150 mls/hr Q6H40M IV ; Start at 11:00; Status Future Hold ZOYA BROOKS MD Dec 05, 2016 11:21
[2016-12-05] MEDS ORDERED: MAGNESIUM SULFATE 4 GM/100 ML 100 ML IVPB ONE (12:30)
[2016-12-05] MEDS: D5W-0.45 NACL + KCL 40 MEQ 1,000 ML IV SCH ×3 (12:38→23:23)
[2016-12-05 14:51] LABS: POTASSIUM 3.9 mmol/L (3.5-5.1)
[2016-12-05 14:53] LABS: CREATININE 0.42 mg/dl (0.61-1.24)
[2016-12-05 14:54] LABS: CALCIUM 9.5 mg/dl (8.4-10.2)
[2016-12-05] MEDS: CEFTRIAXONE 1 GM/50 ML (PMX) 50 ML IVPB SCH (15:55)
[2016-12-05] MEDS ORDERED: POTASSIUM PHOSPHATE 30 MM in SOD CHLORIDE 0.9% 250 ML IVPB ONE (16:30)
[2016-12-05] MEDS: FLUCONAZOLE 200 MG/NS (PMX) 100 ML IVPB SCH (17:00)
[2016-12-05 18:21] LABS: POTASSIUM 3.9 mmol/L (3.5-5.1)
[2016-12-05 18:24] LABS: CALCIUM 9.4 mg/dl (8.4-10.2); CREATININE 0.39 mg/dl (0.61-1.24)
[2016-12-05 21:31] LABS: POTASSIUM 4.2 mmol/L (3.5-5.1)
[2016-12-05] MEDS: INSULIN GLARGINE [LANtus] 3 ML PEN SC SCH (21:33)
[2016-12-05 21:34] LABS: CREATININE 0.37 mg/dl (0.61-1.24)
[2016-12-05 21:35] LABS: CALCIUM 9.1 mg/dl (8.4-10.2)
[2016-12-05 21:36] LABS: MAGNESIUM 1.9 mg/dl (1.7-2.5)
[2016-12-06] VITALS (20 sets, daily range): BP systolic 99–143; BP diastolic 55–81; PULSE 89–108; RESP 15–23
[2016-12-06] MEDS: ACCUCHECK XX SCH ×23 (00:34→22:30)
[2016-12-06] MEDS: D5W-0.45 NACL + KCL 40 MEQ 1,000 ML IV SCH ×3 (05:00→12:30)
[2016-12-06 07:00] LABS: CHLORIDE 106 mmol/L (97-110); POTASSIUM 4.3 mmol/L (3.5-5.1); SODIUM 137 mmol/L (135-144)
[2016-12-06 07:02] LABS: CREATININE 0.34 mg/dl (0.61-1.24)
[2016-12-06 07:03] LABS: ANION GAP 18 (8-16); BLOOD UREA NITROGEN < 2 mg/dl (7-20); CALCIUM 9.2 mg/dl (8.4-10.2); CARBON DIOXIDE 17 mmol/L (21-31); GLUCOSE 179 mg/dl (70-220)
[2016-12-06 07:04] LABS: MAGNESIUM 1.8 mg/dl (1.7-2.5)
[2016-12-06 08:07] LABS: BASOPHIL # 0.1 10^3/ul (0.0-0.1); HEMATOCRIT 41.4 % (42.0-52.0); HEMOGLOBIN 14.4 g/dl (14.0-18.0); MEAN CORPUSCULAR HEMOGLOBIN 30.1 pg (29.0-33.0); MEAN CORPUSCULAR HGB CONC 34.7 g/dl (32.0-37.0); MEAN CORPUSCULAR VOLUME 86.8 fl (72.0-104.0); MEAN PLATELET VOLUME 10.1 fl (7.4-10.4); NUCLEATED RED BLOOD CELLS% 12.1 /100WBC (0.0-0.0); PLATELET COUNT 215 10^3/UL (140-440); RED BLOOD COUNT 4.77 10^6/ul (4.70-6.10); RED CELL DISTRIBUTION WIDTH 14.3 % (11.5-14.5); WHITE BLOOD COUNT 11.6 10^3/ul (4.8-10.8)
[2016-12-06 08:09] LABS: CONDITION 1; LH ANALYZER COMMENTS 1; NUCLEATED RED BLOOD CELLS # 1.4 10^3/ul (0.0-0.0); SUSPECT 1; UNCORRECTED WBC 12.6 10^3/ul (4.8-10.8)
[2016-12-06] MEDS: FAMOTIDINE 20 MG INJ IV SCH ×2 (09:50→21:05)
[2016-12-06] MEDS: INSULIN REGULAR, HUMAN 100 UNIT in SOD CHLORIDE 0.9% 99 ML IV SCH ×2 (09:50)
[2016-12-06] MEDS: DOCUSATE SODIUM 100 MG CAP PO SCH ×2 (09:51→21:05)
[2016-12-06] MEDS: LOSARTAN 25 MG TAB PO SCH (09:51)
[2016-12-06 10:44] LABS: EOSINOPHILS # 0.3 10^3/ul (0.0-0.5); LYMPHOCYTES # 2.1 10^3/ul (0.8-2.9); MONOCYTE # 0.3 10^3/ul (0.3-0.9); NEUTROPHIL # 8.7 10^3/ul (1.6-7.5)
[2016-12-06 13:40] LABS: ALBUMIN 3.5 g/dl (3.3-4.9); POTASSIUM 3.9 mmol/L (3.5-5.1)
[2016-12-06 13:43] LABS: CREATININE 0.38 mg/dl (0.61-1.24)
[2016-12-06 13:44] LABS: CALCIUM 9.1 mg/dl (8.4-10.2); PHOSPHORUS 2.9 mg/dl (2.5-4.9)
--- NOTE | 2016-12-06 14:08 | CONS ---
DATE OF ADMISSION: 12/04/2016 DATE OF CONSULTATION: HISTORY OF PRESENT ILLNESS: Mr. Marquez is a 21-year-old gentleman who was diagnosed with type 1 diab etes mellitus in 2011. He has been under the care of an outpatient pony cylinder press operator and generally had done well. Over the last 7 weeks or so, there is a question about how well he was taking his insulin. He came into the hospital in fairly significant and advanced d iabetic ketoacidosis and because of this was admitted. Please note his toxicology screens were nega tive. Also note, and somewhat ominously, with his blood cultures, both sets of blood cultures drawn separately have staph species in them. PAST MEDICAL HISTORY: Diabetes mellitus type 1. ALLERGIES: HAS NO ALLERGIES. He has been brought into the intensive care unit and is placed on insulin drip and his DKA has resol sherlyn. Albeit somewhat more slowly than one would have normally expected, and he is only just clearin g now at the 48 hour carolee. ASSESSMENT AND PLAN: 1. Diabetes mellitus type 1 with DKA and staph septicemia. He is absolutely an appropriate admissi on under [facility] guidelines and needs to be in the hospital. 2. The primary team will do an evaluation to make sure there is not a more ominous reason for the s taph sepsis. Dictated By: JORDON COPPOLA MD, JR/IESHA Conf#: [id number] DID#: [id number]
--- NOTE | 2016-12-06 14:14 | CONS ---
Date/Time of Note Date/Time of Note DATE: 12/06/16 TIME: 14:12 Assessment/Plan Assessment/Plan Problems: (1) Diabetic ketoacidosis associated with type 1 diabetes mellitus Status: Acute Comment: Nearly resolved. AG closed and CO2 nearly normal. D/c insulin drip and IV dextrose Qualifiers: Diabetes mellitus complication detail: without coma Qualified Code: E10.10 - Diabetic ketoacidosis without coma associated with type 1 diabetes mellitus (2) Type 1 diabetes mellitus with hyperglycemia Status: Chronic Comment: Already started lantus 40 qhs. Will add Novolog 20 qac and reeval tomorrow. Consult DM education. Consultation Date/Type/Reason Admit Date/Time Dec 04, 2016 at 15:53 Initial Consult Date 12/05/16 Type of Consultation: Endocrinology Reason for Consultation DKA, [id number] Referring Provider: SALLY WILKINS 24 HR Interval Summary Constitutional: improved, no complaints Detailed Summary Respiratory: no complaints Cardiovascular: no complaints Gastrointestinal: no complaints Genitourinary: no complaints Musculoskeletal: no complaints Neurologic: no complaints Exam/Review of Systems Vital Signs Vitals VS - Last 72 Hours, by Label Date Time Temp Pulse Resp B/P Pulse Ox O2 Delivery O2 Flow Rate FiO2 12/06/16 12:00 96 12/06/16 11:00 100 17 116/72 96 12/06/16 10:00 100 20 123/73 96 12/06/16 09:00 101 20 122/65 97 12/06/16 08:00 97.9 102 23 126/72 97 12/06/16 08:00 102 12/06/16 07:00 104 17 124/66 99 12/06/16 06:00 101 16 123/71 96 12/06/16 05:00 105 18 117/63 99 12/06/16 04:00 98.1 98 15 119/72 98 Room Air 12/06/16 04:00 105 12/06/16 03:00 101 16 128/70 95 12/06/16 02:00 102 18 129/77 98 12/06/16 01:00 99 19 132/78 99 12/06/16 00:50 104 12/06/16 00:00 97.6 108 19 143/81 97 Room Air 12/05/16 23:00 101 22 132/81 98 12/05/16 22:00 101 22 134/83 97 12/05/16 21:00 101 18 137/83 99 12/05/16 20:49 104 12/05/16 20:00 97.9 108 17 136/78 99 Room Air 12/05/16 19:00 106 25 134/81 97 12/05/16 17:00 116 18 147/86 99 Room Air 12/05/16 16:00 103 20 131/81 98 Room Air 12/05/16 16:00 116 12/05/16 15:00 115 17 141/77 99 Room Air 12/05/16 14:00 102 22 133/65 99 Room Air 12/05/16 13:00 97.7 109 23 128/75 98 Room Air 12/05/16 12:00 109 20 123/75 96 Room Air 12/05/16 12:00 111 12/05/16 11:00 108 22 123/74 96 Room Air 12/05/16 10:00 107 21 118/67 98 Room Air 12/05/16 09:00 110 16 135/83 98 Room Air 12/05/16 08:00 98.0 108 21 133/65 97 Room Air 12/05/16 08:00 109 12/05/16 07:00 106 21 132/64 98 12/05/16 06:00 111 22 143/82 97 12/05/16 04:00 97.6 110 22 144/84 98 Room Air 12/05/16 04:00 114 12/05/16 03:00 111 21 155/83 98 12/05/16 02:00 110 20 146/80 99 12/05/16 01:00 118 23 144/91 98 12/05/16 00:00 115 12/05/16 00:00 98.7 119 19 135/72 100 Room Air 12/04/16 23:00 114 26 165/81 99 12/04/16 22:30 107 22 151/78 100 12/04/16 22:00 97.7 111 24 156/80 100 Room Air 12/04/16 21:45 115 12/04/16 21:17 100.0 118 18 165/68 99 Room Air 12/04/16 18:34 100.0 118 18 150/85 97 Room Air 12/04/16 16:15 114 18 155/79 99 Room Air 12/04/16 15:20 114 160/65 12/04/16 11:48 100.0 120 16 147/78 97 Room Air 12/04/16 08:59 100.2 120 21 177/74 98 Vital Signs Date Time Temp Pulse Resp B/P Pulse Ox O2 Delivery O2 Flow Rate FiO2 12/06/16 12:00 96 12/06/16 11:00 17 116/72 96 12/06/16 08:00 97.9 12/06/16 04:00 Room Air Intake and Output 12/05/16 12/05/16 12/06/16 15:00 23:00 07:00 Intake Total 841 ml 2582 ml 1772 ml Output Total 1000 ml 800 ml 1200 ml Balance -159 ml 1782 ml 572 ml Exam Constitutional: alert, obese, oriented Psych: nl mood/affect, no complaints Respiratory: clear to auscultation, normal air movement Cardiovascular: nl pulses, regular rate and rhythm, No edema, No murmurs/extra sounds, No rub Gastrointestinal: bowel sounds, nl liver, spleen, non-tender, soft, No mass, No rebound or guarding Musculoskeletal: nl extremities to inspection Extremities: normal pulses, No clubbing, No cyanosis, No edema Neurological: SIGN ARTIST II-XII intact, nl mental status, nl speech, nl strength Additional Comments Bedside Glucose - 72 Hours Test 12/04/16 12:01 12/04/16 14:20 12/04/16 15:23 12/04/16 16:20 Bedside Glucose 422mg/dL (70-220) *H 329mg/dL (70-220) H 286mg/dL (70-220) H 267mg/dL (70-220) H Test 12/04/16 17:11 12/04/16 18:08 12/04/16 19:01 12/04/16 20:13 Bedside Glucose 259mg/dL (70-220) H 225mg/dL (70-220) H 205mg/dL (70-220) 211mg/dL (70-220) Test 12/04/16 21:10 12/04/16 21:54 12/04/16 22:58 12/04/16 23:56 Bedside Glucose 180mg/dL (70-220) 183mg/dL (70-220) 183mg/dL (70-220) 203mg/dL (70-220) Test 12/05/16 01:07 12/05/16 01:53 12/05/16 03:09 12/05/16 04:20 Bedside Glucose 163mg/dL (70-220) 157mg/dL (70-220) 197mg/dL (70-220) 211mg/dL (70-220) Test 12/05/16 05:18 12/05/16 06:36 12/05/16 08:24 12/05/16 09:40 Bedside Glucose 190mg/dL (70-220) 159mg/dL (70-220) 140mg/dL (70-220) 139mg/dL (70-220) Test 12/05/16 11:10 12/05/16 12:11 12/05/16 13:31 12/05/16 15:08 Bedside Glucose 105mg/dL (70-220) 94mg/dL (70-220) 152mg/dL (70-220) 176mg/dL (70-220) Test 12/05/16 16:44 12/05/16 18:51 12/05/16 19:48 12/05/16 21:18 Bedside Glucose 160mg/dL (70-220) 190mg/dL (70-220) 183mg/dL (70-220) 204mg/dL (70-220) Test 12/05/16 22:12 12/05/16 23:15 12/06/16 00:14 12/06/16 01:16 Bedside Glucose 204mg/dL (70-220) 185mg/dL (70-220) 189mg/dL (70-220) 207mg/dL (70-220) Test 12/06/16 02:17 12/06/16 03:38 12/06/16 04:19 12/06/16 04:59 Bedside Glucose 193mg/dL (70-220) 187mg/dL (70-220) 177mg/dL (70-220) 166mg/dL (70-220) Test 12/06/16 06:29 12/06/16 07:44 12/06/16 09:15 12/06/16 11:02 Bedside Glucose 163mg/dL (70-220) 189mg/dL (70-220) 168mg/dL (70-220) 173mg/dL (70-220) Test 12/06/16 12:28 12/06/16 13:33 Bedside Glucose 168mg/dL (70-220) 138mg/dL (70-220) Results Result Diagram: 12/06/16 0525 12/06/16 1300 Results 24 hrs Laboratory Tests Test 12/05/16 15:08 12/05/16 16:44 12/05/16 17:38 12/05/16 18:51 Bedside Glucose 176 160 190 Anion Gap 18 #H Blood Urea Nitrogen 4 L Calcium Level 9.4 Carbon Dioxide Level 15 L Chloride Level 105 Creatinine 0.39 L Glucose Level 175 Potassium Level 3.9 Sodium Level 134 L Test 12/05/16 19:48 12/05/16 20:55 12/05/16 21:18 12/05/16 22:12 Bedside Glucose 183 204 204 Anion Gap 20 H Blood Urea Nitrogen 3 L Calcium Level 9.1 Carbon Dioxide Level 15 L Chloride Level 104 Creatinine 0.37 L Glucose Level 214 Magnesium Level 1.9 Phosphorus Level 3.0 Potassium Level 4.2 Sodium Level 135 Test 12/05/16 23:15 12/06/16 00:14 12/06/16 01:16 12/06/16 02:17 Bedside Glucose 185 189 207 193 Test 12/06/16 03:38 12/06/16 04:19 12/06/16 04:59 12/06/16 05:25 Bedside Glucose 187 177 166 Anion Gap 18 H Basophils # 0.1 Basophils % 1.0 Blood Urea Nitrogen < 2 L Calcium Level 9.2 Carbon Dioxide Level 17 L Chloride Level 106 Creatinine 0.34 L Eosinophils # 0.3 Eosinophils % 3.0 Glucose Level 179 Hematocrit 41.4 L Hemoglobin 14.4 Lymphocytes # 2.1 Lymphocytes % 18.0 Magnesium Level 1.8 Mean Corpuscular Hemoglobin 30.1 Mean Corpuscular Hemoglobin Concent 34.7 Mean Corpuscular Volume 86.8 Mean Platelet Volume 10.1 Monocytes # 0.3 Monocytes % 3.0 Neutrophils # 8.7 H Neutrophils % 75.0 H Nucleated Red Blood Cells # 1.4 H Nucleated Red Blood Cells % 12.1 H Platelet Count 215 # Potassium Level 4.3 Red Blood Count 4.77 Red Cell Distribution Width 14.3 Sodium Level 137 White Blood Count 11.6 #H Test 12/06/16 06:29 12/06/16 07:44 12/06/16 09:15 12/06/16 11:02 Bedside Glucose 163 189 168 173 Test 12/06/16 12:28 12/06/16 13:00 12/06/16 13:33 Bedside Glucose 168 138 Albumin 3.5 Anion Gap 16 Blood Urea Nitrogen 2 L Calcium Level 9.1 Carbon Dioxide Level 19 L Chloride Level 108 Creatinine 0.38 L Glucose Level 168 Phosphorus Level 2.9 Potassium Level 3.9 Sodium Level 139 Medications Medications Current Medications Dextrose (D50w Syringe) 50 ml Q15M PRN IV For BS 50 or less; Start 12/04/16 at 14:30 Dextrose (D50w Syringe) 25 ml Q15M PRN IV BS between 50-70; Start 12/04/16 at 14:30 Diagnostic Test (Pha) (Accucheck) 1 ea Q1H XX Last administered on 12/06/16 13 :43; Admin Dose 1 EA; Start 12/04/16 at 14:30 Famotidine (Pepcid Iv) 20 mg BID IV Last administered on 12/06/16 09:50; Admin Dose 20 MG; Start 12/04/16 at 21:00 Ondansetron HCl (Zofran Inj) 4 mg Q6H PRN IV NAUSEA AND/OR VOMITING; Start at 14:30 Docusate Sodium (Colace) 200 mg BID PO Last administered on 12/06/16 09:51; Admin Dose 200 MG; Start 12/04/16 at 21:00 Losartan Potassium 25 mg 25 mg DAILY PO Last administered on 12/06/16 09:51; Admin Dose 25 MG; Start 12/04/16 at 15:00 Ceftriaxone Sodium 50 ml @ 100 mls/hr Q24H IVPB Last administered on 15:55; Admin Dose 100 MLS/HR; Start 12/04/16 at 15:00 Fluconazole (Diflucan 200 Mg/ NS (Pmx)) 100 ml @ 100 mls/hr Q24H IVPB Last administered on 12/05/16 17:00; Admin Dose 100 MLS/HR; Start 12/04/16 at 16:00 Acetaminophen (Tylenol Tab) 650 mg Q6H PRN PO PAIN AND OR ELEVATED TEMP Last administered on 12/04/16 22:48; Admin Dose 650 MG; Start 12/04/16 at 22:30 Insulin Glargine (Lantus) 40 unit QHS SC Last administered on 12/05/16t 21:33; Admin Dose 40 UNIT; Start 12/05/16 at 21:00 Miscellaneous Information (* Miscellaneous Pharmacy Order) HYPOGLYCEMIA PROTOCOL w... ONCE ONCE XX ; Start 12/06/16 at 14:30; Stop 12/06/16 at 14:31; Status UNV Miscellaneous Information (* Miscellaneous Pharmacy Order) Discontinue Glyburide , Glipizide,... ONCE ONCE XX ; Start 12/06/16 at 14:30; Stop 12/06/16 at 14:31 ; Status UNV Miscellaneous Information (* Miscellaneous Pharmacy Order) Discontinue all previ... ONCE ONCE XX ; Start 12/06/16 at 14:30; Stop 12/06/16 at 14:31; Status UNV Diagnostic Test (Pha) (Accucheck) XX ; Start 12/07/16 at 02:00; Status UNV ZOYA BROOKS MD Dec 06, 2016 14:14
[2016-12-06 14:16] LABS: BASOPHILS % 0.5 % (0.0-2.0); EOSINOPHILS # 0.2 10^3/ul (0.0-0.5); EOSINOPHILS % 2.6 % (0.0-7.0); HEMATOCRIT 40.7 % (42.0-52.0); HEMOGLOBIN 13.8 g/dl (14.0-18.0); LYMPHOCYTES # 1.3 10^3/ul (0.8-2.9); LYMPHOCYTES % 17.8 % (18.0-55.0); MEAN CORPUSCULAR HEMOGLOBIN 29.8 pg (29.0-33.0); MEAN CORPUSCULAR HGB CONC 33.9 g/dl (32.0-37.0); MONOCYTE # 0.7 10^3/ul (0.3-0.9); MONOCYTES % 9.5 % (0.0-13.0); NEUTROPHILS % 69.6 % (30.0-74.0); PLATELET COUNT 208 10^3/UL (140-440); RED BLOOD COUNT 4.62 10^6/ul (4.70-6.10); RED CELL DISTRIBUTION WIDTH 14.2 % (11.5-14.5); UNCORRECTED WBC 7.2 10^3/ul (4.8-10.8); WHITE BLOOD COUNT 7.2 10^3/ul (4.8-10.8)
[2016-12-06 14:20] LABS: CONDITION 1
[2016-12-06 14:26] LABS: POTASSIUM 3.7 mmol/L (3.5-5.1)
[2016-12-06 14:29] LABS: CREATININE 0.35 mg/dl (0.61-1.24)
[2016-12-06] MEDS ORDERED: GLUCOSE GEL 15 GRAM TUBE BUCCAL PRN (14:30)
[2016-12-06] MEDS ORDERED: GLUCAGON 1 MG INJ IM PRN (14:30)
[2016-12-06] MEDS ORDERED: DEXTROSE 50% 50 ML SYRINGE IV PRN ×2 (14:30)
[2016-12-06] MEDS ORDERED: GLUCOSE GEL 15 GRAM TUBE PO PRN ×2 (14:30)
[2016-12-06] MEDS: CEFTRIAXONE 1 GM/50 ML (PMX) 50 ML IVPB SCH (15:46)
[2016-12-06] MEDS: FLUCONAZOLE 200 MG/NS (PMX) 100 ML IVPB SCH (16:19)
[2016-12-06] MEDS: INSULIN ASPART [NOVOLOG] 3 ML PEN SC SCH ×3 (18:08→21:00)
[2016-12-06 18:20] LABS: MICROALBUMIN 25.1 mg/dL
[2016-12-06] MEDS: INSULIN GLARGINE [LANtus] 3 ML PEN SC SCH (21:05)
[2016-12-07] MEDS ORDERED: ACCUCHECK XX SCH (02:00)
--- NOTE | 2016-12-07 06:54 | PN ---
DATE: 12/06/2016 SUBJECTIVE: The patient denies chest pain. Was seen by endocrinology team today. No acute events overnight. OBJECTIVE VITAL SIGNS: Stable. GENERAL: The patient is lying in bed, answering questions, in no acute distress. HEENT: Pupils equal, round, react to light. Extraocular muscles intact. NECK: Supple, no thyromegaly. LUNGS: Clear to auscultation bilaterally. CARDIOVASCULAR: S1, S2 heard. No rubs or gallops. ABDOMEN: Soft, nontender, nondistended. Normal bowel sounds. No rebound or guarding. MUSCULOSKELETAL: No lower extremity edema bilaterally. NEUROLOGIC: No focal deficits. LABORATORIES: WBC 11.6, hemoglobin 14.4, hematocrit 41.4, platelets 215. The basic metabolic panel is normal. Sugars are stable. ASSESSMENT AND PLAN: A 21-year-old male with type 1 diabetes who presents with diabetic ketoacidosi s and noncompliance with the medicines. 1. Elevated blood sugars, again secondary to diabetic ketoacidosis, most likely secondary to noncom pliance. Again, sugars are stable now. He is off insulin drip, seen by endocrinology team this mor yimi and switched over subQ insulin. Continue to monitor for now. Follow up computer network and systems engineer cons ult has been placed and is pending. 2. Urinary tract infection positive for yeast. Continue antifungal. 3. Bacteremia positive for staph. Continue third generation cephalosporins. Follow up final cultu re results. Tylenol p.r.n. pain and fevers. 4. Hypertension. Blood pressure stable. Continue to monitor for now. 5. Gastrointestinal prophylaxis. H2 chiqui. 6. DVT prophylaxis, SCDs. Time spent on patient care today, 40 minutes. Dictated By: DEMETRIA BASS Conf#: [id number] DID#: [id number]
[2016-12-07 07:40] VITALS: BP 132/75; RESP 20
[2016-12-07] MEDS: FAMOTIDINE 20 MG INJ IV SCH (08:34)
[2016-12-07] MEDS: DOCUSATE SODIUM 100 MG CAP PO SCH (08:34)
[2016-12-07] MEDS: LOSARTAN 25 MG TAB PO SCH (08:36)
[2016-12-07 08:41] LABS: BASOPHILS % 0.2 % (0.0-2.0); EOSINOPHILS # 0.1 10^3/ul (0.0-0.5); EOSINOPHILS % 1.9 % (0.0-7.0); HEMATOCRIT 41.7 % (42.0-52.0); HEMOGLOBIN 14.3 g/dl (14.0-18.0); LYMPHOCYTES # 1.9 10^3/ul (0.8-2.9); LYMPHOCYTES % 30.8 % (18.0-55.0); MEAN CORPUSCULAR HEMOGLOBIN 30.2 pg (29.0-33.0); MEAN CORPUSCULAR HGB CONC 34.2 g/dl (32.0-37.0); MEAN CORPUSCULAR VOLUME 88.3 fl (72.0-104.0); MEAN PLATELET VOLUME 9.4 fl (7.4-10.4); MONOCYTE # 0.8 10^3/ul (0.3-0.9); MONOCYTES % 12.6 % (0.0-13.0); NEUTROPHIL # 3.3 10^3/ul (1.6-7.5); NEUTROPHILS % 54.5 % (30.0-74.0); PLATELET COUNT 218 10^3/UL (140-440); RED BLOOD COUNT 4.72 10^6/ul (4.70-6.10); RED CELL DISTRIBUTION WIDTH 14.4 % (11.5-14.5)
[2016-12-07] MEDS: INSULIN ASPART [NOVOLOG] 3 ML PEN SC SCH ×4 (08:46→12:57)
[2016-12-07 08:52] LABS: CONDITION 1
[2016-12-07 08:56] LABS: PHOSPHORUS 3.9 mg/dl (2.5-4.9); POTASSIUM 3.8 mmol/L (3.5-5.1)
[2016-12-07 08:57] LABS: MAGNESIUM 1.6 mg/dl (1.7-2.5)
[2016-12-07 08:59] LABS: CREATININE 0.37 mg/dl (0.61-1.24)
[2016-12-07 09:00] LABS: CALCIUM 9.3 mg/dl (8.4-10.2)
[2016-12-07] MEDS ORDERED: MAGNESIUM SULFATE 2 GM/50 ML 50 ML IVPB ONE (09:30)
--- NOTE | 2016-12-07 09:36 | PDOCDIS ---
Discharge Instructions CONDITION Patient Condition: Stable HOME CARE INSTRUCTIONS: Special Diet: carb controlled diet ACTIVITY: Activity Restrictions: Slowly Increase Activity FOLLOW UP/APPOINTMENTS Appointments Please follow up with Dr Caro in clinic in 1 week. DEMETRIA ESTRELLA Dec 07, 2016 09:36
[2016-12-07] MEDS ORDERED: FLUC200T52 PO (09:38)
[2016-12-07] MEDS ORDERED: LEVO750T25 PO (09:38)
[2016-12-07] MEDS ORDERED: NOVO3I SC (09:38)
[2016-12-07] MEDS ORDERED: LANT3I SC (09:38)
--- NOTE | 2016-12-07 10:20 | DS ---
DATE OF ADMISSION: 12/04/2016 DATE OF DISCHARGE: 12/07/2016 HOSPITAL COURSE: This is a 21-year-old male originally admitted on 12/04/2015 being discharged home on 12/07/2016, if okay with endocrinology team. The patient initially came in with very elevated b lood sugars and signs of DKA. He also was found with fungal UTI and also sepsis secondary to that a s well as staph bacteremia. He was initially admitted to ICU, placed on DKA protocol including aggr essive IV fluid resuscitation and IV insulin. His hemoglobin A1c was found to be very elevated at 1 2.7. There was a concern of patient being noncompliant at home with his insulin regimen. He was se en by endocrinology team. Over the course of hospital stay, his DKA symptoms resolved. He was even tually taken out of ICU, his sugars were stable. He was switched over to subcutaneous insulin and t he patient was able to ambulate and tolerate a p.o. diet. We gave him some brief diabetic education at the bedside. There was not a adult educator available unfortunately this week to come and of ficially see the patient, but the patient does say he has all the supplies at home including glucome ter and lancets and needles. We gave prescriptions for a new insulin regimen and the patient will f ollow up with endocrinology team as an outpatient in next 1 to 2 weeks. DISCHARGE MEDICATIONS: He will go home with the following medications: 1. Fluconazole 200 mg daily for 7 days. 2. Aspart insulin 20 units subcu with meals. 3. Lantus 40 units subcutaneous at bedtime. 4. Levaquin 750 mg p.o. daily for 10 days. 5. Lisinopril 30 mg p.o. daily. The patient has also been told have strictly carbohydrate-controlled diet as well. FINAL DIAGNOSES: 1. Elevated blood sugar secondary to diabetic ketoacidosis, which could exacerbate the patient's ba cteremia and yeast infection with history of type 1 diabetes. 2. Type 1 diabetes, uncontrolled, with hemoglobin A1c of 12.7. 3. Fungal urinary tract infection. 4. Staphylococcus aureus bacteremia 5. Questionable history of noncompliance for diabetes. 6. Hypertension. Time spent discharging patient 40 minutes. Dictated By: DEMETRIA BASS Conf#: [id number] [facility]#: [id number]
--- NOTE | 2016-12-07 13:43 | CONS ---
Date/Time of Note Date/Time of Note DATE: 12/07/16 TIME: 13:40 Assessment/Plan Assessment/Plan Problems: (1) Diabetic ketoacidosis associated with type 1 diabetes mellitus Status: Resolved Qualifiers: Diabetes mellitus complication detail: without coma Qualified Code: E10.10 - Diabetic ketoacidosis without coma associated with type 1 diabetes mellitus (2) Type 1 diabetes mellitus with hyperglycemia Status: Chronic Comment: FS markedly improved. Current doses of insulin effective and should be continued as outpt. Pt. met w/ DM educator and encouraged to be adherent. Pt. ok for d/c home from endo standpoint. Consultation Date/Type/Reason Admit Date/Time Dec 04, 2016 at 15:53 Initial Consult Date 12/05/16 Type of Consultation: Endocrinology Reason for Consultation DKA, DM OOC Referring Provider: SALLY WILKINS 24 HR Interval Summary Constitutional: improved, no complaints Detailed Summary Respiratory: no complaints Cardiovascular: no complaints Gastrointestinal: no complaints Genitourinary: no complaints Musculoskeletal: no complaints Neurologic: no complaints Exam/Review of Systems Vital Signs Vitals VS - Last 72 Hours, by Label Date Time Temp Pulse Resp B/P Pulse Ox O2 Delivery O2 Flow Rate FiO2 12/07/16 07:40 98.6 94 20 132/75 98 12/06/16 20:00 98 12/06/16 18:00 105 16 113/60 100 12/06/16 17:00 89 15 112/56 98 12/06/16 16:00 93 12/06/16 16:00 93 19 110/55 98 12/06/16 14:00 99/59 98 12/06/16 13:00 96 17 118/70 99 12/06/16 12:00 96 12/06/16 12:00 101 20 119/75 96 12/06/16 11:00 100 17 116/72 96 12/06/16 10:00 100 20 123/73 96 12/06/16 09:00 101 20 122/65 97 12/06/16 08:00 97.9 102 23 126/72 97 12/06/16 08:00 102 12/06/16 07:00 104 17 124/66 99 12/06/16 06:00 101 16 123/71 96 12/06/16 05:00 105 18 117/63 99 12/06/16 04:00 98.1 98 15 119/72 98 Room Air 12/06/16 04:00 105 12/06/16 03:00 101 16 128/70 95 12/06/16 02:00 102 18 129/77 98 12/06/16 01:00 99 19 132/78 99 12/06/16 00:50 104 12/06/16 00:00 97.6 108 19 143/81 97 Room Air 12/05/16 23:00 101 22 132/81 98 12/05/16 22:00 101 22 134/83 97 12/05/16 21:00 101 18 137/83 99 12/05/16 20:49 104 12/05/16 20:00 97.9 108 17 136/78 99 Room Air 12/05/16 19:00 106 25 134/81 97 12/05/16 17:00 116 18 147/86 99 Room Air 12/05/16 16:00 103 20 131/81 98 Room Air 12/05/16 16:00 116 12/05/16 15:00 115 17 141/77 99 Room Air 12/05/16 14:00 102 22 133/65 99 Room Air 12/05/16 13:00 97.7 109 23 128/75 98 Room Air 12/05/16 12:00 109 20 123/75 96 Room Air 12/05/16 12:00 111 12/05/16 11:00 108 22 123/74 96 Room Air 12/05/16 10:00 107 21 118/67 98 Room Air 12/05/16 09:00 110 16 135/83 98 Room Air 12/05/16 08:00 98.0 108 21 133/65 97 Room Air 12/05/16 08:00 109 12/05/16 07:00 106 21 132/64 98 12/05/16 06:00 111 22 143/82 97 12/05/16 04:00 97.6 110 22 144/84 98 Room Air 12/05/16 04:00 114 12/05/16 03:00 111 21 155/83 98 12/05/16 02:00 110 20 146/80 99 12/05/16 01:00 118 23 144/91 98 12/05/16 00:00 115 12/05/16 00:00 98.7 119 19 135/72 100 Room Air 12/04/16 23:00 114 26 165/81 99 12/04/16 22:30 107 22 151/78 100 12/04/16 22:00 97.7 111 24 156/80 100 Room Air 12/04/16 21:45 115 12/04/16 21:17 100.0 118 18 165/68 99 Room Air 12/04/16 18:34 100.0 118 18 150/85 97 Room Air 12/04/16 16:15 114 18 155/79 99 Room Air 12/04/16 15:20 114 160/65 Vital Signs Date Time Temp Pulse Resp B/P Pulse Ox O2 Delivery O2 Flow Rate FiO2 12/07/16 07:40 98.6 94 20 132/75 98 12/06/16 04:00 Room Air Intake and Output 12/06/16 12/06/16 12/07/16 15:00 23:00 07:00 Intake Total 963 ml 450 ml 240 ml Output Total 1000 ml 500 ml Balance -37 ml -50 ml 240 ml Exam Constitutional: alert, obese, oriented Psych: nl mood/affect, no complaints Respiratory: clear to auscultation, normal air movement Cardiovascular: nl pulses, regular rate and rhythm, No edema, No murmurs/extra sounds, No rub Gastrointestinal: bowel sounds, nl liver, spleen, non-tender, soft, No mass, No rebound or guarding Musculoskeletal: nl extremities to inspection Extremities: normal pulses, No clubbing, No cyanosis, No edema Neurological: GANG MINER II-XII intact, nl mental status, nl speech, nl strength Additional Comments Bedside Glucose - 72 Hours Test 12/04/16 14:20 12/04/16 15:23 12/04/16 16:20 12/04/16 17:11 Bedside Glucose 329mg/dL (70-220) H 286mg/dL (70-220) H 267mg/dL (70-220) H 259mg/dL (70-220) H Test 12/04/16 18:08 12/04/16 19:01 12/04/16 20:13 12/04/16 21:10 Bedside Glucose 225mg/dL (70-220) H 205mg/dL (70-220) 211mg/dL (70-220) 180mg/dL (70-220) Test 12/04/16 21:54 12/04/16 22:58 12/04/16 23:56 12/05/16 01:07 Bedside Glucose 183mg/dL (70-220) 183mg/dL (70-220) 203mg/dL (70-220) 163mg/dL (70-220) Test 12/05/16 01:53 12/05/16 03:09 12/05/16 04:20 12/05/16 05:18 Bedside Glucose 157mg/dL (70-220) 197mg/dL (70-220) 211mg/dL (70-220) 190mg/dL (70-220) Test 12/05/16 06:36 12/05/16 08:24 12/05/16 09:40 12/05/16 11:10 Bedside Glucose 159mg/dL (70-220) 140mg/dL (70-220) 139mg/dL (70-220) 105mg/dL (70-220) Test 12/05/16 12:11 12/05/16 13:31 12/05/16 15:08 12/05/16 16:44 Bedside Glucose 94mg/dL (70-220) 152mg/dL (70-220) 176mg/dL (70-220) 160mg/dL (70-220) Test 12/05/16 18:51 12/05/16 19:48 12/05/16 21:18 12/05/16 22:12 Bedside Glucose 190mg/dL (70-220) 183mg/dL (70-220) 204mg/dL (70-220) 204mg/dL (70-220) Test 12/05/16 23:15 12/06/16 00:14 12/06/16 01:16 12/06/16 02:17 Bedside Glucose 185mg/dL (70-220) 189mg/dL (70-220) 207mg/dL (70-220) 193mg/dL (70-220) Test 12/06/16 03:38 12/06/16 04:19 12/06/16 04:59 12/06/16 06:29 Bedside Glucose 187mg/dL (70-220) 177mg/dL (70-220) 166mg/dL (70-220) 163mg/dL (70-220) Test 12/06/16 07:44 12/06/16 09:15 12/06/16 11:02 12/06/16 12:28 Bedside Glucose 189mg/dL (70-220) 168mg/dL (70-220) 173mg/dL (70-220) 168mg/dL (70-220) Test 12/06/16 13:33 12/06/16 17:46 12/06/16 20:41 12/06/16 22:00 Bedside Glucose 138mg/dL (70-220) 182mg/dL (70-220) 178mg/dL (70-220) 181mg/dL (70-220) Test 12/07/16 07:52 12/07/16 12:18 Bedside Glucose 178mg/dL (70-220) 148mg/dL (70-220) Results Result Diagram: 12/07/16 0712/07/16 0706 Results 24 hrs Laboratory Tests Test 12/06/16 13:55 12/06/16 17:46 12/06/16 20:41 12/06/16 22:00 Anion Gap 16 Basophils # 0.0 Basophils % 0.5 Blood Urea Nitrogen 2 L Calcium Level 9.0 Carbon Dioxide Level 20 L Chloride Level 107 Creatinine 0.35 L Eosinophils # 0.2 Eosinophils % 2.6 Glucose Level 152 Hematocrit 40.7 L Hemoglobin 13.8 L Lymphocytes # 1.3 Lymphocytes % 17.8 L Magnesium Level 1.5 L Mean Corpuscular Hemoglobin 29.8 Mean Corpuscular Hemoglobin Concent 33.9 Mean Corpuscular Volume 88.0 Mean Platelet Volume 9.0 Monocytes # 0.7 Monocytes % 9.5 Neutrophils # 5.0 Neutrophils % 69.6 Nucleated Red Blood Cells # 0.0 Nucleated Red Blood Cells % 0.0 Platelet Count 208 Potassium Level 3.7 Red Blood Count 4.62 L Red Cell Distribution Width 14.2 Sodium Level 139 White Blood Count 7.2 # Bedside Glucose 182 178 181 Test 12/07/16 07:06 12/07/16 07:52 12/07/16 12:18 Anion Gap 17 H Basophils # 0.0 Basophils % 0.2 Blood Urea Nitrogen 9 Calcium Level 9.3 Carbon Dioxide Level 22 Chloride Level 104 Creatinine 0.37 L Eosinophils # 0.1 Eosinophils % 1.9 Glucose Level 178 Hematocrit 41.7 L Hemoglobin 14.3 Lymphocytes # 1.9 Lymphocytes % 30.8 Magnesium Level 1.6 L Mean Corpuscular Hemoglobin 30.2 Mean Corpuscular Hemoglobin Concent 34.2 Mean Corpuscular Volume 88.3 Mean Platelet Volume 9.4 Monocytes # 0.8 Monocytes % 12.6 Neutrophils # 3.3 Neutrophils % 54.5 Nucleated Red Blood Cells # 0.0 Nucleated Red Blood Cells % 0.0 Phosphorus Level 3.9 Platelet Count 218 Potassium Level 3.8 Red Blood Count 4.72 Red Cell Distribution Width 14.4 Sodium Level 139 White Blood Count 6.0 Bedside Glucose 178 148 Medications Medications Current Medications Famotidine (Pepcid Iv) 20 mg BID IV Last administered on 12/07/16 08:34; Admin Dose 20 MG; Start 12/04/16 at 21:00 Ondansetron HCl (Zofran Inj) 4 mg Q6H PRN IV NAUSEA AND/OR VOMITING; Start at 14:30 Docusate Sodium (Colace) 200 mg BID PO Last administered on 12/07/16 08:34; Admin Dose 200 MG; Start 12/04/16 at 21:00 Losartan Potassium 25 mg 25 mg DAILY PO Last administered on 12/07/16 08:36; Admin Dose 25 MG; Start 12/04/16 at 15:00 Ceftriaxone Sodium 50 ml @ 100 mls/hr Q24H IVPB Last administered on 15:46; Admin Dose 100 MLS/HR; Start 12/04/16 at 15:00 Fluconazole (Diflucan 200 Mg/ NS (Pmx)) 100 ml @ 100 mls/hr Q24H IVPB Last administered on 12/06/16 16:19; Admin Dose 100 MLS/HR; Start 12/04/16 at 16:00 Acetaminophen (Tylenol Tab) 650 mg Q6H PRN PO PAIN AND OR ELEVATED TEMP Last administered on 12/04/16 22:48; Admin Dose 650 MG; Start 12/04/16 at 22:30 Insulin Glargine (Lantus) 40 unit QHS SC Last administered on 12/06/16 21:05; Admin Dose 40 UNIT; Start 12/05/16 at 21:00 Diagnostic Test (Pha) (Accucheck) 1 ea 02 XX ; Start 12/07/16 at 02:00 Miscellaneous Information 1 ea NOTE XX ; Start 12/06/16 at 14:30 Glucose (Glutose) 15 gm Q15M PRN PO DECREASED GLUCOSE; Start 12/06/16 at 14:30 Glucose (Glutose) 22.5 gm Q15M PRN PO DECREASED GLUCOSE; Start 12/06/16 at 14: 30 Dextrose (D50w Syringe) 25 ml Q15M PRN IV DECREASED GLUCOSE; Start 12/06/16 at 14:30 Dextrose (D50w Syringe) 50 ml Q15M PRN IV DECREASED GLUCOSE; Start 12/06/16 at 14:30 Glucagon (Glucagen) 1 mg Q15M PRN IM DECREASED GLUCOSE; Start 12/06/16 at 14:30 Glucose (Glutose) 15 gm Q15M PRN BUCCAL DECREASED GLUCOSE; Start 12/06/16 at 14 :30 ZOYA BROOKS MD Dec 07, 2016 13:43
== END 2016-12-07 14:45 | disposition home or self-care (01) | DRG 871 ==
LOC: FTE 08:57 → ICU 15:53 → MS2 12-06 21:21
PROVIDERS: ADMIT Family Medicine; ATTEND Family Medicine
DX: A41.9 Sepsis, unspecified organism (principal); E10.10 Type 1 diabetes mellitus with ketoacidosis without coma; B37.49 Other urogenital candidiasis; I10 Essential (primary) hypertension; Z79.4 Long term (current) use of insulin; Z91.14 Patient's other noncompliance with medication regimen
CPT/HCPCS: 36415; 71010; 80048; 80053; 80069; 80307; 81001; 81003; 82043; 82803; 82962; 83036; 83605; 83690; 83735; 84100; 84484; 85025; 85610; 85730; 87040; 87081; 87086; 96365; 96366; 96368; 96372; 96375; J0696; J1815; J2405; J2543; J3475; J3480; J7030; J7042; J7050

== ENCOUNTER 2016-12-14 15:28 | Outpatient (CLI) | payer OTHER ==
[~2016-12-14] VITALS: Ht 167.6 cm; Wt 98.2 kg
[~2016-12-14 15:28] MED LIST changes: -BP MEDS; +FLUC200T52 PO; -INSULIN; +LANT3I SC; +LEVO750T25 PO; +LISI30TA47 PO; +NOVO3I SC; -[UNRECOGNIZED DRUG - REMARK]
--- NOTE | 2016-12-14 15:44 | PN ---
Date/Time of Note Date/Time of Note DATE: 12/14/16 TIME: 15:44 Outpatient Progress Note Chief Complaint Diabetes out of control/hypertension/UTI HPI Diabetes/patient has diabetes, patient had diabetic ketoacidosis, patient was recently hospitalized, patient blood sugar slightly better control, no polydipsia polyuria hypoglycemia, patient advised to follow 1800 ADA diet, Hypertension/no headache or dizziness, no local focal weakness, no nausea vomiting, UTI/patient had UTI, no frequency urgency, patient finished antibiotic, patient did have sepsis, patient much improved, Review of Systems Const: No Fever, no chills, no Wt. loss, no Fatigue, normal appetite, no diaphoresis. Eyes: No pain, no discharge, no redness, no visual change, no foreign body. ENT: No pain, no bleeding, no congestion, no sore throat, no dysphagia, no discharge or rhinitis. Lymph: No adenopathy, no tender nodes, no lymphedema. Resp: No SOB, no cough, no sputum, no wheezing, no chest pain. CV: No chest pain, no palpitaions, no FLROES, no PND, no edema. GI: Normal appetite, no pain, no nausea, no vomiting, no diarrhea, no blood, no constipation. : No frequency, no urgency, no dysuria, no hematuria, no flank pain, no discharge, no bleeding. Musc: No bone/joint pain, no back pain, no neck pain, no knee pain, no restricted ROM. Skin: No rash, no skin lesions, no erythema, no laceration, no bruising, no pruritus. Neuro: No LOVE, no dizziness, no syncope, no seizure, no focal-weakness. Endo: No polyuria, no polydypsia, no dry-skin, no temp-intolerance. Psych: No hallucinations, no depression, no anxiety, no suicidal ideation. Ext: No edema, no pain, no ulcer, no weakness. Physical Exam Vital Signs Date Time Temp Pulse Resp B/P Pulse Ox O2 Delivery O2 Flow Rate FiO2 12/14/16 15:48 98.7 91 16 122/59 97 Room Air General Appearance: A 21 year-old male who appears well-developed, well- nourished, in no acute distress. HEENT: Head normocephalic, atraumatic. Pupils equal, round, reactive to light and accommodate. Sclerae are no jaundice. Nasal turbinates pink without erythema or nasal discharge. Mucous membranes pink and moist without lesions. Oropharynx clear without any exudate or discharge. NECK: Supple. Trachea midline, No thyromegaly, No cervical lymphadenopathy, No mass, No carotid bruits, No JVD, Carotid pulses 2+ bilaterally. PULMONARY: Clear to auscultaion bilaterally, No retractions, Chest expansion symmetric bilaterally, no rales, no ronchi, no dulness on percussion. CARDIAC: Normal SI and S2, Regular rate and rythm, no murmur, gallop, or rub. GASTROINTESTINAL: Abdomen is soft, non-tender, Non Rigid, No distention, Positive bowel sounds x4 quadrants, Liver normal. SKIN: Warm, dry, no rash, no bruise, no echmosis. EXTREMITIES: Bilateral lower extremities normal, no edema, no phlabitus, pulse palpable, no contracture. MUSCULOSKELETAL: Spine Normal, Non-tender, Normal range of motion, No swelling, no deformity, no clubbing, or cyanosis, the patient has no edema to bilateral lower extremities, dorsalis pedis pulses palpable bilaterally. NEUROLOGIC: The patient is awake, alert, oriented, responding to yes/no questions appropriately, moving all extremities, cranial nerve intact, normal strenght, normal power, normal coordination, normal gait. Allergies Coded Allergies: No Known Allergies (Verified Allergy, Unknown, 12/06/16) H Diabetic ketoacidosis/diabetes were controlled/hypertension/sepsis/UTI Social Hx No smoking or drinking, Family Hx Diabetes Assessment/Plan Impression Diabetes/hypertension/sepsis/UTI Plan Patient was recently hospitalized with diabetic ketoacidosis, patient much improved, patient's blood sugar fairly controlled, patient also has been following diet, patient advised to increase activity, Patient education about diabetes then, and complication with diabetes and hypertension, patient understands it, Patient to lose weight, increase exercise, Monitor blood sugar closely, patient had UTI/bacteremia and sepsis monitor closely for signs symptom of infection, Patient encouraged to follow with the primary care physician, CBC CMP,, Medications Home Meds Active Scripts Fluconazole* (Fluconazole*) 200 Mg Tablet, 200 MG PO DAILY for 7 Days, TAB Prov:DEMETRIA ESTRELLA S. 12/07/16 Levofloxacin* (Levaquin*) 750 Mg Tablet, 750 MG PO DAILY for 10 Days, TAB Prov:DEMETRIA ESTRELLA S. 12/07/16 Insulin Glargine* (Lantus*) 100 Unit/Ml Soln, 40 UNIT SC QHS for 30 Days, 5 Refills Prov:DEMETRIA ESTRELLA S. 12/07/16 Insulin Aspart* (Novolog Insulin Pen*) 100 Unit/Ml Soln, 20 UNIT SC WITH MEALS for 30 Days, 5 Refills Prov:JOSEF ESTRELLAP S. 12/07/16 Reported Medications Lisinopril* (Lisinopril*) 30 Mg Tablet, 30 MG PO DAILY, #30 TAB 12/04/16 Discontinued Reported Medications Insulin Aspart* (Novolog Insulin Pen*) 100 Unit/Ml Soln, 0 SC .SLIDING SCALE AC , EA BEFORE MEALS THREE TIMES DAILY 12/04/16 LEAH ARAGON MD Dec 14, 2016 15:44
[2016-12-14 15:48] VITALS: BP 122/59; PULSE 91; RESP 16; Ht 167.6 cm; Wt 98.2 kg
== END 2016-12-14 16:46 | disposition home or self-care (01) ==
LOC: DCC 15:28
PROVIDERS: ATTEND Internal Medicine
DX: E11.9 Type 2 diabetes mellitus without complications (principal); I10 Essential (primary) hypertension; A41.9 Sepsis, unspecified organism; N39.0 Urinary tract infection, site not specified
CPT/HCPCS: 82962; Z7500; G0463

== ENCOUNTER 2016-12-28 11:28 | Outpatient (CLI) | payer OTHER ==
[~2016-12-28] VITALS: Ht 167.6 cm; Wt 100.0 kg
[2016-12-28 11:33] VITALS: BP 132/71; PULSE 94; RESP 18; Ht 167.6 cm; Wt 100.0 kg
--- NOTE | 2016-12-28 11:40 | PN ---
Date/Time of Note Date/Time of Note DATE: 12/28/16 TIME: 11:40 Outpatient Progress Note Chief Complaint Diabetes/hypertension/ HPI Diabetes/upper lid hypoglycemia, gastroparesis, abdominal distention, blood sugar between 130 and 230, no frequency urgency, Hypertension/no headache or dizziness, no lightheadedness, no local focal weakness, History of UTI/patient did have UTI, no frequency urgency, patient doing well, patient had finished antibiotic, Review of Systems Const: No Fever, no chills, no Wt. loss, no Fatigue, normal appetite, no diaphoresis. Eyes: No pain, no discharge, no redness, no visual change, no foreign body. ENT: No pain, no bleeding, no congestion, no sore throat, no dysphagia, no discharge or rhinitis. Lymph: No adenopathy, no tender nodes, no lymphedema. Resp: No SOB, no cough, no sputum, no wheezing, no chest pain. CV: No chest pain, no palpitaions, no FLOERS, no PND, no edema. GI: Normal appetite, no pain, no nausea, no vomiting, no diarrhea, no blood, no constipation. : No frequency, no urgency, no dysuria, no hematuria, no flank pain, no discharge, no bleeding. Musc: No bone/joint pain, no back pain, no neck pain, no knee pain, no restricted ROM. Skin: No rash, no skin lesions, no erythema, no laceration, no bruising, no pruritus. Neuro: No LOVE, no dizziness, no syncope, no seizure, no focal-weakness. Endo: No polyuria, no polydypsia, no dry-skin, no temp-intolerance. Psych: No hallucinations, no depression, no anxiety, no suicidal ideation. Ext: No edema, no pain, no ulcer, no weakness. Physical Exam Vital Signs Date Time Temp Pulse Resp B/P Pulse Ox O2 Delivery O2 Flow Rate FiO2 12/28/16 11:33 98.8 94 18 132/71 97 Room Air General Appearance: A 21 year-old male who appears well-developed, well- nourished, slightly obese, in no acute distress. HEENT: Head normocephalic, atraumatic. Pupils equal, round, reactive to light and accommodate. Sclerae are no jaundice. Nasal turbinates pink without erythema or nasal discharge. Mucous membranes pink and moist without lesions. Oropharynx clear without any exudate or discharge. NECK: Supple. Trachea midline, No thyromegaly, No cervical lymphadenopathy, No mass, No carotid bruits, No JVD, Carotid pulses 2+ bilaterally. PULMONARY: Clear to auscultaion bilaterally, No retractions, Chest expansion symmetric bilaterally, no rales, no ronchi, no dulness on percussion. CARDIAC: Normal SI and S2, Regular rate and rythm, no murmur, gallop, or rub. GASTROINTESTINAL: Abdomen is soft, non-tender, Non Rigid, No distention, Positive bowel sounds x4 quadrants, Liver normal. SKIN: Warm, dry, no rash, no bruise, no echmosis. EXTREMITIES: Bilateral lower extremities normal, no edema, no phlabitus, pulse palpable, no contracture. MUSCULOSKELETAL: Spine Normal, Non-tender, Normal range of motion, No swelling, no deformity, no clubbing, or cyanosis, the patient has no edema to bilateral lower extremities, dorsalis pedis pulses palpable bilaterally. NEUROLOGIC: The patient is awake, alert, oriented, responding to yes/no questions appropriately, moving all extremities, cranial nerve intact, normal strenght, normal power, normal coordination, normal gait. Allergies Coded Allergies: No Known Allergies (Verified Allergy, Unknown, 12/06/16) PMH Diabetes/hypertension/UTI Social Hx No change Family Hx No change Assessment/Plan Impression Diabetes/hypertension/history of UTI Plan Patient education done about diabetes, risk explained, patient is doing better, patient blood sugar has been between 130 and 230, Will increase Lantus to 43 units, discussed with the patient, increase activity, Diabetic education done, about her diet, and exercise, Patient to monitor blood sugar closely and take the reading to the primary care physician, so they can adjust insulin dose accordingly, discussed with hypoglycemia, Medications Home Meds Active Scripts Insulin Glargine* (Lantus*) 100 Unit/Ml Soln, 40 UNIT SC QHS for 30 Days, 5 Refills Prov:DEMETRIA ESTRELLA S. 12/07/16 Insulin Aspart* (Novolog Insulin Pen*) 100 Unit/Ml Soln, 20 UNIT SC WITH MEALS for 30 Days, 5 Refills Prov:DEMETRIA ESTRELLA S. 12/07/16 Reported Medications Lisinopril* (Lisinopril*) 30 Mg Tablet, 30 MG PO DAILY, #30 TAB 12/04/16 Discontinued Scripts Fluconazole* (Fluconazole*) 200 Mg Tablet, 200 MG PO DAILY for 7 Days, TAB Prov:DEMETRIA ESTRELLA S. 12/07/16 Levofloxacin* (Levaquin*) 750 Mg Tablet, 750 MG PO DAILY for 10 Days, TAB Prov:DEMETRIA ESTRELLA S. 12/07/16 LEAH ARAGON MD Dec 28, 2016 11:40
== END 2016-12-28 16:40 | disposition home or self-care (01) ==
LOC: DCC 11:28
PROVIDERS: ATTEND Internal Medicine
DX: E11.9 Type 2 diabetes mellitus without complications (principal); I10 Essential (primary) hypertension; Z87.440 Personal history of urinary (tract) infections; Z79.4 Long term (current) use of insulin
CPT/HCPCS: G0463